=== PATIENT | male | born 1960 | race Caucasian/White ===

== ENCOUNTER 2017-02-22 15:41 | Inpatient (IN) | payer OTHER ==
[2017-02-22 16:05] VITALS: BMI 19.5
--- NOTE | 2017-02-22 17:52 | HP ---
COWS - Scale Resting Pulse: 0= [place] 80 or Below Sweatin= Chills/Flushing Restless Observation: 1= Difficult to Sit Still Pupil Size: 0= Normal to Room Light Bone or Joint Aches: 2= Severe Diffuse Aches Runny Nose/ Eye Tearin= Runny Nose/Eyes GI Upset > 30mins: 2= Nausea/Diarrhea Tremor Observation: 2= Slight Tremor Visible Yawning Observation: 1= 1-2x During Session Anxiety or Irritability: 2=Irritable/Anxious Goose Flesh Skin: 0=Smooth Skin COWS Score: 13 CIWA Score - CIWA Score Nausea/Vomitin-Mild Nausea/No Vomiting Muscle Tremors: 4-Moderate,w/Arms Extend Anxiety: 4-Mod. Anxious/Guarded Agitation: 4-Moderately Restless Paroxysmal Sweats: 1-Minimal Palms Moist Orientation: 1-Uncertain about Date Tacttile Disturbances: 0-None Auditory Disturbances: 0-None Visual Disturbances: 0-None Headache: 0-None Present CIWA-Ar Total Score: 15 Admission ROS S - HPI Chief Complaint: WITHDRAWAL SX Allergies/Adverse Reactions: Allergies Allergy/AdvReac Type Severity Reaction Status Date / Time No Known Allergies Allergy Verified 02/22/17 17:33 History of Present Illness: 56 YEARS OLD MALE WITH LONG HISTORY OF OPIOID ALCOHOL NICOTINE DEPENDENCE DENIES MEDICAL ISSUES HAS DEPRESSION IS ADMITTED TO DETOX Exam Limitations: No Limitations - Ebola screening Have you traveled outside of the country in the last 21 days: No Have you had contact with anyone from an Ebola affected area: No Have you been sick,other than usual withdrawal symptoms: No Do you have a fever: No - Review of Systems Constitutional: Chills, Loss of Appetite, Changes in sleep, Unintentional Wgt. Loss, Unexplained wgt Loss EENT: reports: Other (EYE GLASSES) Respiratory: reports: SOB with Exertion, Productive cough (GREENISH) Cardiac: reports: No Symptoms Reported GI: reports: Diarrhea, Nausea, Poor Appetite, Poor Fluid Intake, Indigestion, Abdominal cramping : reports: No Symptoms Reported Musculoskeletal: reports: Back Pain, Joint Pain, Muscle Pain, Neck Pain Integumentary: reports: Change in Color (RIGHT INNER ELBOW IV OPIOID) Neuro: reports: Tremors Endocrine: reports: No Symptoms Reported Hematology: reports: No Symptoms Reported Psychiatric: reports: Judgement Intact, Depressed Other Systems: Reviewed and Negative Patient History - Patient Medical History Hx Anemia: No Hx Asthma: No Hx Chronic Obstructive Pulmonary Disease (COPD): No Hx Cancer: No Hx Cardiac Disorders: No Hx Congestive Heart Failure: No Hx Hypertension: No Hx Hypercholesterolemia: No Hx Pacemaker: No HX Cerebrovascular Accident: No Hx Seizures: No Hx Dementia: No Hx Diabetes: No Hx Gastrointestinal Disorders: No Hx Liver Disease: No Hx Genitourinary Disorders: No Hx Sexually Transmitted Disorders: No Hx Renal Disease (ESRD): No Hx Thyroid Disease: No Hx Human Immunodeficiency Virus (HIV): No Hx Hepatitis C: Yes (TREATED) Hx Depression: Yes Hx Suicide Attempt: No Hx Bipolar Disorder: No Hx Schizophrenia: No - Patient Surgical History Past Surgical History: No - PPD History Previous Implant?: Yes Documented Results: Negative w/o proof Implanted On Prior [facility] Admission?: No PPD to be Administered?: Yes - Smoking Cessation Smoking history: Current every day smoker Have you smoked in the past 12 months: Yes Aproximately how many cigarettes per day: 10 Cigars Per Day: 0 Hx Chewing Tobacco Use: No Initiated information on smoking cessation: Yes 'Breaking Loose' booklet given: 02/22/17 - Substance & Tx. History Hx Alcohol Use: Yes Hx Substance Use: Yes Substance Use Type: Alcohol, Opiates Hx Substance Use Treatment: Yes - Substances Abused Heroin Route: Injection Frequency: Daily Amount used: 6-7 bags Age of first use: 20 Date of Last Use: 02/21/17 Alcohol Route: Oral Frequency: Daily Amount used: 1 22oz beer/ 1 pint gin Age of first use: 13 Date of Last Use: 02/21/17 Admission Physical Exam [facility] - Vital Signs Vital Signs: Vital Signs - 24 hr 02/22/17 16:03 Temperature 96.8 F L Pulse Rate 61 Respiratory 20 Rate Blood Pressure 128/81 - Physical General Appearance: Yes: Appropriately Dressed, Mild Distress, Thin, Tremorous, Irritable, Sweating, Anxious HEENTM: Yes: Hearing grossly Normal, Normal ENT Inspection, Normocephalic, Normal Voice Respiratory: Yes: Chest Non-Tender, Lungs Clear, Normal Breath Sounds, No Respiratory Distress, No Accessory Muscle Use Neck: Yes: Supple, Trachea in good position Breast: Yes: Breasts Symetrical Cardiology: Yes: Regular Rhythm, S1, S2, Bradycardia Abdominal: Yes: Non Tender, Soft Genitourinary: Yes: Within Normal Limits Back: Yes: Normal Inspection Musculoskeletal: Yes: full range of Motion, Gait Steady, Back pain, Muscle Pain Neurological: Yes: Alert, Motor Strength 5/5, Normal Response, Depressed Affect Integumentary: Yes: Warm, Track Wu Lymphatic: Yes: Within Normal Limits - Diagnostic (1) Alcohol dependence with uncomplicated withdrawal Current Visit: Yes Status: Acute (2) Opioid dependence with withdrawal Current Visit: Yes Status: Acute (3) Nicotine dependence Current Visit: Yes Status: Acute Qualifiers: Nicotine product type: cigarettes Substance use status: in withdrawal Qualified Code(s): F17.213 - Nicotine dependence, cigarettes, with withdrawal (4) Weight loss Current Visit: Yes Status: Acute (5) GERD (gastroesophageal reflux disease) Current Visit: Yes Status: Chronic Qualifiers: Esophagitis presence: without esophagitis Qualified Code(s): K21.9 - Gastro-esophageal reflux disease without esophagitis (6) Hepatitis C antibody test positive Current Visit: Yes Status: Resolved (7) Depression (emotion) Current Visit: Yes Status: Suspected Qualifiers: Depression Type: dysthymia Qualified Code(s): F34.1 - Dysthymic disorder Cleared for Admission [facility] - Detox or Rehab [facility] Level of Care: Medically Managed Detox Regimen/Protocol: Methadone/Librium S Breath Alcohol Content Breath Alcohol Content: 0 Urine Drug Screen - Results Drug Screen Negative: No Urine Drug Screen Results: OPI-Opiates
[2017-02-22] MEDS ORDERED: MAGNESIUM HYDROX 2400MG/30ML ORAL SUSPENSION 30 ML CUP PO PRN (17:57)
[2017-02-22] MEDS ORDERED: NICOTINE POLACRILEX 2 MG GUM BC PRN (17:57)
[2017-02-22] MEDS ORDERED: ACETAMINOPHEN 325 MG TABLET (FP) PO PRN (17:57)
[2017-02-22] MEDS ORDERED: MAG HYDROX/AL HYDROX/SIMETH 30 ML UNIT-DOSE CUP PO PRN (17:57)
[2017-02-22] MEDS ORDERED: LOPERAMIDE HCL 2 MG CAPSULE PO PRN (17:57)
[2017-02-22] MEDS ORDERED: MAGNESIUM CITRATE 300 ML BOTTLE PO PRN (17:57)
[2017-02-22] MEDS ORDERED: P-EPHED 60MG/TRIPROLIDI 2.5MG TABLET PO PRN (17:57)
[2017-02-22] MEDS ORDERED: METHADONE HCL 10 MG TABLET (FOR DETOX USE ONLY) PO ONE ×2 (18:30→23:00)
[2017-02-22] MEDS: chlordiazePOXIDE HCL 25 MG CAPSULE PO PRN (18:52)
[2017-02-22] MEDS: chlordiazePOXIDE HCL 25 MG CAPSULE PO SCH (22:33)
[2017-02-22] MEDS: THIAMINE HCL 100 MG TABLET (FP) PO SCH (22:33)
[2017-02-22] MEDS: RANITIDINE HCL 150 MG TABLET (FP) PO SCH (22:33)
[2017-02-22] MEDS: guaiFENesin/D-METHORPHAN HB 10 ML UNIT-DOSE CUPS PO PRN (22:35)
[2017-02-22 23:56] LABS: URINE APPEARANCE CLEAR; URINE BILIRUBIN NEGATIVE (NEGATIVE); URINE BLOOD NEGATIVE (NEGATIVE); URINE COLOR STRAW; URINE GLUCOSE (UA) NEGATIVE (NEGATIVE); URINE KETONE NEGATIVE (NEGATIVE); URINE LEUK ESTERASE NEGATIVE (NEGATIVE); URINE NITRITE NEGATIVE (NEGATIVE); URINE PROTEIN NEGATIVE (NEGATIVE); URINE UROBILINOGEN NEGATIVE E.U./dl (0.2-1.0)
[2017-02-23] MEDS: chlordiazePOXIDE HCL 25 MG CAPSULE PO SCH ×4 (04:36→22:45)
[2017-02-23] MEDS ORDERED: METHADONE HCL 10 MG TABLET (FOR DETOX USE ONLY) PO SCH (10:00)
[2017-02-23 10:09] LABS: MCH 30.6 pg (25.7-33.7); MCHC 32.9 g/dl (32.0-35.9); MEAN PLT VOLUME 10.2 fl (7.5-11.1); PLATELET COUNT 120 K/MM3 (134-434); RDW 12.9 % (11.9-15.9); WHITE BLOOD COUNT 4.2 K/mm3 (4.0-10.0)
--- NOTE | 2017-02-23 10:19 | CONSULT ---
[facility] Psychiatric Consult - Data Date of interview: 02/23/17 Admission source: [facility] Identifying data: This is 56 years old male with no psychiatric hospitalization history intoxicated with: Alvohol, Opioids and Nicotine Substance Abuse History: - Smoking Cessation. Smoking history: Current every day smoker. Have you smoked in the past 12 months: Yes. Aproximately how many cigarettes per day: 10. Cigars Per Day: 0. Hx Chewing Tobacco Use: No. Initiated information on smoking cessation: Yes. 'Breaking Loose' booklet given : 02/22/17. - Substance & Tx. History. Hx Alcohol Use: Yes. Hx Substance Use : Yes. Substance Use Type: Alcohol, Opiates. Hx Substance Use Treatment: Yes. - Substances Abused. Heroin. Route: Injection. Frequency: Daily. Amount used: 6-7 bags. Age of first use: 20. Date of Last Use: 02/21/17. Alcohol. Route: Oral. Frequency: Daily. Amount used: 1 22oz beer/ 1 pint gin. Age of first use: 13. Date of Last Use: 02/21/17 Medical History: Weight loss history, GERD Psychiatric History: Patient reports history og depression anhjd anxiety Physical/Sexual Abuse/Trauma History: Denies Additional Comment: Observation. Detox Unit Care Protocol Mental Status Exam - Mental Status Exam Alert and Oriented to: Person Cognitive Function: Fair Patient Appearance: Unkempt Mood: Sad Affect: Flat Patient Behavior: Sedated Speech Pattern: Appropriate Voice Loudness: Mildly Soft/Quiet Thought Process: Circumstantial Thought Disorder: Being Controlled Hallucinations: Denies Suicidal Ideation: Denies Homicidal Ideation: Denies Insight/Judgement: Fair Sleep: Difficulty falling asleep Appetite: Weight loss Muscle strength/Tone: Mild Hypotonicity Gait/Station: Shuffling Additional Comments: Observation. Detox Unit Care Protocol Psychiatric Findings - Problem List ([place] 1, 2,3) (1) Alcohol dependence with uncomplicated withdrawal Current Visit: Yes Status: Acute (2) Nicotine dependence Current Visit: Yes Status: Acute Qualifiers: Nicotine product type: cigarettes Substance use status: in withdrawal Qualified Code(s): F17.213 - Nicotine dependence, cigarettes, with withdrawal (3) Opioid dependence with withdrawal Current Visit: Yes Status: Acute (4) Drug-induced mood disorder Current Visit: Yes Status: Acute - Initial Treatment Plan Initial Treatment Plan: Observation. Detox Unit Care Protocol
[2017-02-23] MEDS: RANITIDINE HCL 150 MG TABLET (FP) PO SCH ×2 (10:28→23:00)
[2017-02-23] MEDS: PRENATAL VITAMINS W/ FOLIC ACID TABLET (FP) PO SCH (10:28)
[2017-02-23] MEDS: guaiFENesin/D-METHORPHAN HB 10 ML UNIT-DOSE CUPS PO PRN (10:29)
[2017-02-23] MEDS: NICOTINE 14 MG/24 HOURS TOPICAL PATCH TD SCH (10:31)
[2017-02-23 10:32] LABS: ALBUMIN 3.2 g/dl (3.4-5.0); CALCIUM 8.2 mg/dL (8.5-10.1); GLUCOSE,RANDOM 111 mg/dL (74-106); SGPT/ALT 84 U/L (12-78)
[2017-02-23 10:35] LABS: ALK PHOS 53 U/L (45-117); ANION GAP 8 (8-16); BILIRUBIN,TOTAL 0.3 mg/dL (0.2-1.0); CO2 28 mmol/L (21-32); COCKROFT - GAULT 74.96; SGOT/AST 69 U/L (15-37); TOT PROT 6.3 g/dl (6.4-8.2)
--- NOTE | 2017-02-23 11:41 | PN ---
[facility] CIWA - CIWA Score Nausea/Vomitin-No Nausea/No Vomiting Muscle Tremors: 4-Moderate,w/Arms Extend Anxiety: 4-Mod. Anxious/Guarded Agitation: 4-Moderately Restless Paroxysmal Sweats: 1-Minimal Palms Moist Orientation: 0-Oriented Tacttile Disturbances: 3-Moderate Itch/Numb/Burn Auditory Disturbances: 0-None Visual Disturbances: 0-None Headache: 0-None Present CIWA-Ar Total Score: 16 S COWS - Scale Resting Pulse: 0= [place] 80 or Below Sweatin= Chills/Flushing Restless Observation: 3= Extraneous Movement Pupil Size: 2= Moderately Dilated Bone or Joint Aches: 4=Acute Joint/Muscle Pain Runny Nose/ Eye Tearin= Nasal Congestion GI Upset > 30mins: 1= Stomach Cramp Tremor Observation of Outstretched Hands: 2= Slight Tremor Visible Yawning Observation: 2= >3x During Session Anxiety or Irritability: 2=Irritable/Anxious Goose Flesh Skin: 0=Smooth Skin COWS Score: 18 S Progress Note (SOAP) Subjective: ANXIETY,SWEATS,TREMORS,INTERMITTENT SLEEP. Objective: 02/23/17 11:49 Vital Signs Temperature 96.6 F L 02/23/17 09:32 Pulse Rate 68 02/23/17 09:32 Respiratory Rate 18 02/23/17 09:32 Blood Pressure 99/69 02/23/17 09:32 O2 Sat by Pulse Oximetry (%) Laboratory Last Values WBC 4.2 K/mm3 (4.0-10.0) 02/23/17 07:00 RBC 3.88 M/mm3 (4.00-5.60) L 02/23/17 07:00 Hgb 11.9 GM/dL (11.7-16.9) 02/23/17 07:00 Hct 36.1 % (35.4-49) 02/23/17 07:00 MCV 93.0 fl (80-96) 02/23/17 07:00 MCHC 32.9 g/dl (32.0-35.9) 02/23/17 07:00 RDW 12.9 % (11.9-15.9) 02/23/17 07:00 Plt Count 120 K/MM3 (134-434) L 02/23/17 07:00 MPV 10.2 fl (7.5-11.1) 02/23/17 07:00 Sodium 141 mmol/L (136-145) 02/23/17 07:00 Potassium 3.5 mmol/L (3.5-5.1) 02/23/17 07:00 Chloride 105 mmol/L (98-107) 02/23/17 07:00 Carbon Dioxide 28 mmol/L (21-32) 02/23/17 07:00 Anion Gap 8 (8-16) 02/23/17 07:00 BUN 27 mg/dL (7-18) H 02/23/17 07:00 Creatinine 1.0 mg/dL (0.7-1.3) 02/23/17 07:00 Creat Clearance w eGFR > 60 (>60) 02/23/17 07:00 Random Glucose 111 mg/dL (74-106) H 02/23/17 07:00 Calcium 8.2 mg/dL (8.5-10.1) L 02/23/17 07:00 Total Bilirubin 0.3 mg/dL (0.2-1.0) 02/23/17 07:00 AST 69 U/L (15-37) H 02/23/17 07:00 ALT 84 U/L (12-78) H 02/23/17 07:00 Alkaline Phosphatase 53 U/L (45-117) 02/23/17 07:00 Total Protein 6.3 g/dl (6.4-8.2) L 02/23/17 07:00 Albumin 3.2 g/dl (3.4-5.0) L 02/23/17 07:00 Urine Color Straw 02/22/17 23:40 Urine Appearance Clear 02/22/17 23:40 Urine pH 7.0 (5.0-8.0) 02/22/17 23:40 Urine Protein Negative (NEGATIVE) 02/22/17 23:40 Urine Glucose (UA) Negative (NEGATIVE) 02/22/17 23:40 Urine Ketones Negative (NEGATIVE) 02/22/17 23:40 Urine Blood Negative (NEGATIVE) 02/22/17 23:40 Urine Nitrite Negative (NEGATIVE) 02/22/17 23:40 Urine Bilirubin Negative (NEGATIVE) 02/22/17 23:40 Urine Urobilinogen Negative E.U./dl (0.2-1.0) 02/22/17 23:40 Ur Leukocyte Esterase Negative (NEGATIVE) 02/22/17 23:40 Assessment: 02/23/17 11:49 WITHDRAWAL SX Plan: CONTINUE DETOX
[2017-02-23] MEDS: chlordiazePOXIDE HCL 25 MG CAPSULE PO PRN (15:33)
[2017-02-23] MEDS: MENTHOL/PHENOL 1 EACH UD MM PRN (15:35)
--- NOTE | 2017-02-23 17:35 | EKG ---
Test Reason : Blood Pressure : / mmHG Vent. Rate : 056 BPM Atrial Rate : 056 BPM P-R Int : 134 ms QRS Dur : 072 ms QT Int : 422 ms P-R-T Axes : 077 042 064 degrees QTc Int : 407 ms SINUS BRADYCARDIA OTHERWISE NORMAL ECG NO PREVIOUS ECGS AVAILABLE Confirmed by OSKAR BLAKELY MD ([id number]) on 02/23/2017 5:35:25 PM Referred By: Confirmed By:OSKAR BLAKELY MD
[2017-02-23] MEDS: THIAMINE HCL 100 MG TABLET (FP) PO SCH (22:45)
[2017-02-23] MEDS: diphenhydrAMINE HCL 50 MG CAPSULE PO PRN (22:45)
[2017-02-24] MEDS: chlordiazePOXIDE HCL 25 MG CAPSULE PO SCH ×3 (04:31→17:21)
[2017-02-24] MEDS: RANITIDINE HCL 150 MG TABLET (FP) PO SCH ×2 (10:39→22:35)
[2017-02-24] MEDS: PRENATAL VITAMINS W/ FOLIC ACID TABLET (FP) PO SCH (10:39)
[2017-02-24] MEDS: METHADONE HCL 5 MG TABLET (FOR DETOX USE ONLY) PO SCH (10:40)
[2017-02-24] MEDS: NICOTINE 14 MG/24 HOURS TOPICAL PATCH TD SCH (10:40)
--- NOTE | 2017-02-24 11:10 | PN ---
[facility] CIWA - CIWA Score Nausea/Vomitin-No Nausea/No Vomiting Muscle Tremors: 3 Anxiety: 2 Agitation: 2 Paroxysmal Sweats: 3 Orientation: 0-Oriented Tacttile Disturbances: 0-None Auditory Disturbances: 0-None Visual Disturbances: 0-None Headache: 0-None Present CIWA-Ar Total Score: 10 BHS COWS - Scale Resting Pulse: 0= [place] 80 or Below Sweatin=Flushed/Facial Moisture Restless Observation: 1= Difficult to Sit Still Pupil Size: 0= Normal to Room Light Bone or Joint Aches: 1= Mild Discomfort Runny Nose/ Eye Tearin= Nasal Congestion GI Upset > 30mins: 1= Stomach Cramp Tremor Observation of Outstretched Hands: 2= Slight Tremor Visible Yawning Observation: 1= 1-2x During Session Anxiety or Irritability: 2=Irritable/Anxious Goose Flesh Skin: 0=Smooth Skin COWS Score: 11 S Progress Note (SOAP) Subjective: Sweating,tremors,anxiety,muscle aches,interrupted sleep,restless. Objective: 02/24/17 11:09 Vital Signs - 8 hr 02/24/17 02/24/17 02/24/17 03:30 06:46 10:44 Temperature 97 F L 97.0 F L Pulse Rate 56 L 67 Respiratory 18 18 18 Rate Blood Pressure 100/67 91/62 Laboratory Tests 02/22/17 02/23/17 02/23/17 23:40 07:00 07:00 WBC 4.2 RBC 3.88 L Hgb 11.9 Hct 36.1 MCV 93.0 MCHC 32.9 RDW 12.9 Plt Count 120 L MPV 10.2 Sodium 141 Potassium 3.5 Chloride 105 Carbon Dioxide 28 Anion Gap 8 BUN 27 H Creatinine 1.0 Creat Clearance w eGFR > 60 Random Glucose 111 H Calcium 8.2 L Total Bilirubin 0.3 AST 69 H ALT 84 H Alkaline Phosphatase 53 Total Protein 6.3 L Albumin 3.2 L Urine Color Straw Urine Appearance Clear Urine pH 7.0 Ur Specific [place] 1.010 Urine Protein Negative Urine Glucose (UA) Negative Urine Ketones Negative Urine Blood Negative Urine Nitrite Negative Urine Bilirubin Negative Urine Urobilinogen Negative Ur Leukocyte Esterase Negative RPR Titer 02/23/17 07:00 WBC RBC Hgb Hct MCV MCHC RDW Plt Count MPV Sodium Potassium Chloride Carbon Dioxide Anion Gap BUN Creatinine Creat Clearance w eGFR Random Glucose Calcium Total Bilirubin AST ALT Alkaline Phosphatase Total Protein Albumin Urine Color Urine Appearance Urine pH Ur Specific [place] Urine Protein Urine Glucose (UA) Urine Ketones Urine Blood Urine Nitrite Urine Bilirubin Urine Urobilinogen Ur Leukocyte Esterase RPR Titer Nonreactive labs noted Assessment: 02/24/17 11:09 Withdrawal sx. Plan: Continue detox
[2017-02-24] MEDS: THIAMINE HCL 100 MG TABLET (FP) PO SCH (22:35)
[2017-02-24] MEDS: chlordiazePOXIDE 5 MG CAPSULE PO SCH (22:35)
[2017-02-24] MEDS: guaiFENesin/D-METHORPHAN HB 10 ML UNIT-DOSE CUPS PO PRN (22:37)
[2017-02-25] MEDS: chlordiazePOXIDE 5 MG CAPSULE PO SCH ×3 (06:13→17:22)
[2017-02-25] MEDS: PRENATAL VITAMINS W/ FOLIC ACID TABLET (FP) PO SCH (10:35)
[2017-02-25] MEDS: NICOTINE 14 MG/24 HOURS TOPICAL PATCH TD SCH (10:35)
[2017-02-25] MEDS: RANITIDINE HCL 150 MG TABLET (FP) PO SCH ×2 (10:35→22:41)
[2017-02-25] MEDS: METHADONE HCL 5 MG TABLET (FOR DETOX USE ONLY) PO SCH (10:35)
[2017-02-25] MEDS: guaiFENesin/D-METHORPHAN HB 10 ML UNIT-DOSE CUPS PO PRN ×2 (10:37→17:24)
--- NOTE | 2017-02-25 17:53 | PN ---
[facility] Progress Note (SOAP) Subjective: Sweating, Hot / Cold sensations, Anxious, Interrupted Sleep, Back Ache, Body Aches. Objective: PT. A & O X 3, OBSERVED AMBULATING ON UNIT. 02/25/17 17:51 Vital Signs Temperature 96.9 F L 02/25/17 15:47 Pulse Rate 73 02/25/17 15:47 Respiratory Rate 20 02/25/17 15:47 Blood Pressure 102/66 02/25/17 15:47 O2 Sat by Pulse Oximetry (%) Laboratory Last Values WBC 4.2 K/mm3 (4.0-10.0) 02/23/17 07:00 RBC 3.88 M/mm3 (4.00-5.60) L 02/23/17 07:00 Hgb 11.9 GM/dL (11.7-16.9) 02/23/17 07:00 Hct 36.1 % (35.4-49) 02/23/17 07:00 MCV 93.0 fl (80-96) 02/23/17 07:00 MCHC 32.9 g/dl (32.0-35.9) 02/23/17 07:00 RDW 12.9 % (11.9-15.9) 02/23/17 07:00 Plt Count 120 K/MM3 (134-434) L 02/23/17 07:00 MPV 10.2 fl (7.5-11.1) 02/23/17 07:00 Sodium 141 mmol/L (136-145) 02/23/17 07:00 Potassium 3.5 mmol/L (3.5-5.1) 02/23/17 07:00 Chloride 105 mmol/L (98-107) 02/23/17 07:00 Carbon Dioxide 28 mmol/L (21-32) 02/23/17 07:00 Anion Gap 8 (8-16) 02/23/17 07:00 BUN 27 mg/dL (7-18) H 02/23/17 07:00 Creatinine 1.0 mg/dL (0.7-1.3) 02/23/17 07:00 Creat Clearance w eGFR > 60 (>60) 02/23/17 07:00 Random Glucose 111 mg/dL (74-106) H 02/23/17 07:00 Calcium 8.2 mg/dL (8.5-10.1) L 02/23/17 07:00 Total Bilirubin 0.3 mg/dL (0.2-1.0) 02/23/17 07:00 AST 69 U/L (15-37) H 02/23/17 07:00 ALT 84 U/L (12-78) H 02/23/17 07:00 Alkaline Phosphatase 53 U/L (45-117) 02/23/17 07:00 Total Protein 6.3 g/dl (6.4-8.2) L 02/23/17 07:00 Albumin 3.2 g/dl (3.4-5.0) L 02/23/17 07:00 Urine Color Straw 02/22/17 23:40 Urine Appearance Clear 02/22/17 23:40 Urine pH 7.0 (5.0-8.0) 02/22/17 23:40 Ur Specific [place] 1.010 (1.005-1.025) 02/22/17 23:40 Urine Protein Negative (NEGATIVE) 02/22/17 23:40 Urine Glucose (UA) Negative (NEGATIVE) 02/22/17 23:40 Urine Ketones Negative (NEGATIVE) 02/22/17 23:40 Urine Blood Negative (NEGATIVE) 02/22/17 23:40 Urine Nitrite Negative (NEGATIVE) 02/22/17 23:40 Urine Bilirubin Negative (NEGATIVE) 02/22/17 23:40 Urine Urobilinogen Negative E.U./dl (0.2-1.0) 02/22/17 23:40 Ur Leukocyte Esterase Negative (NEGATIVE) 02/22/17 23:40 RPR Titer Nonreactive (NONREACTIVE) 02/23/17 07:00 LABS NOTED. Assessment: 02/25/17 17:53 WITHDRAWAL SYMPTOMS. Plan: CONTINUE DETOX. ADVISED PATIENT TO FOLLOW-UP WITH NUTRITION SERVICES ASSOCIATE / REHAB MEDICAL PROVIDER AFTER DISCHARGE FROM DETOX FOR GENERAL MEDICAL ASSESSMENT AND FOR ABNORMAL ADMISSION LAB VALUES.
[2017-02-25] MEDS: chlordiazePOXIDE HCL 10 MG CAPSULE PO SCH (22:41)
[2017-02-25] MEDS: THIAMINE HCL 100 MG TABLET (FP) PO SCH (22:41)
[2017-02-25] MEDS: diphenhydrAMINE HCL 50 MG CAPSULE PO PRN (22:42)
[2017-02-26] MEDS: chlordiazePOXIDE HCL 10 MG CAPSULE PO SCH ×3 (05:53→17:40)
[2017-02-26] MEDS ORDERED: METHADONE HCL 10 MG TABLET (FOR DETOX USE ONLY) PO SCH (10:00)
[2017-02-26] MEDS: PRENATAL VITAMINS W/ FOLIC ACID TABLET (FP) PO SCH (10:19)
[2017-02-26] MEDS: RANITIDINE HCL 150 MG TABLET (FP) PO SCH ×2 (10:19→21:51)
[2017-02-26] MEDS: NICOTINE 14 MG/24 HOURS TOPICAL PATCH TD SCH (10:20)
[2017-02-26] MEDS: guaiFENesin/D-METHORPHAN HB 10 ML UNIT-DOSE CUPS PO PRN (10:20)
--- NOTE | 2017-02-26 15:51 | PN ---
BHS Progress Note (SOAP) Subjective: Chills, tremor, sweating, anxious, restless Objective: 02/26/17 15:47 Last Vital Signs Temp Pulse Resp BP Pulse Ox 96.1 F L 69 18 99/66 02/26/17 13:55 02/26/17 13:55 02/26/17 13:55 02/26/17 13:55 Laboratory Tests 02/22/17 02/23/17 02/23/17 23:40 07:00 07:00 WBC 4.2 RBC 3.88 L Hgb 11.9 Hct 36.1 MCV 93.0 MCHC 32.9 RDW 12.9 Plt Count 120 L MPV 10.2 Sodium 141 Potassium 3.5 Chloride 105 Carbon Dioxide 28 Anion Gap 8 BUN 27 H Creatinine 1.0 Creat Clearance w eGFR > 60 Random Glucose 111 H Calcium 8.2 L Total Bilirubin 0.3 AST 69 H ALT 84 H Alkaline Phosphatase 53 Total Protein 6.3 L Albumin 3.2 L Urine Color Straw Urine Appearance Clear Urine pH 7.0 Ur Specific [place] 1.010 Urine Protein Negative Urine Glucose (UA) Negative Urine Ketones Negative Urine Blood Negative Urine Nitrite Negative Urine Bilirubin Negative Urine Urobilinogen Negative Ur Leukocyte Esterase Negative RPR Titer 02/23/17 07:00 WBC RBC Hgb Hct MCV MCHC RDW Plt Count MPV Sodium Potassium Chloride Carbon Dioxide Anion Gap BUN Creatinine Creat Clearance w eGFR Random Glucose Calcium Total Bilirubin AST ALT Alkaline Phosphatase Total Protein Albumin Urine Color Urine Appearance Urine pH Ur Specific [place] Urine Protein Urine Glucose (UA) Urine Ketones Urine Blood Urine Nitrite Urine Bilirubin Urine Urobilinogen Ur Leukocyte Esterase RPR Titer Nonreactive Labs noted: platelets 120, BUN 27 Assessment: 02/26/17 15:49 Withdrawal symptoms Noted with mild thrombocytopenia and azotemia Plan: Continue detox Thrombocytopenia: follow up with PCP for monitoring and report and bleeding/ bruising Azotemia: encouraged to drink lots of water
[2017-02-26] MEDS: THIAMINE HCL 100 MG TABLET (FP) PO SCH (21:51)
[2017-02-27] MEDS ORDERED: METHADONE HCL 5 MG TABLET (FOR DETOX USE ONLY) PO SCH (06:00)
[2017-02-27] MEDS: guaiFENesin/D-METHORPHAN HB 10 ML UNIT-DOSE CUPS PO PRN (06:48)
[2017-02-27] MEDS: MENTHOL/PHENOL 1 EACH UD MM PRN (06:48)
[2017-02-27 09:39] VITALS: BP 112/68; PULSE 88; TEMP 97.2
[2017-02-27] MEDS: RANITIDINE HCL 150 MG TABLET (FP) PO SCH (10:29)
[2017-02-27] MEDS: PRENATAL VITAMINS W/ FOLIC ACID TABLET (FP) PO SCH (10:29)
[2017-02-27] MEDS: NICOTINE 14 MG/24 HOURS TOPICAL PATCH TD SCH (10:29)
--- NOTE | 2017-02-27 15:21 | DS ---
[facility] Detox Discharge Summary Admission Date: 02/22/17 Discharge Date: 02/27/17 - History Present History: Alcohol Dependence, Opioid Dependence Pertinent Past History: GERD Hep C - Physical Exam Results Vital Signs: Vital Signs Temperature 97.2 F L 02/27/17 09:38 Pulse Rate 88 02/27/17 09:38 Respiratory Rate 18 02/27/17 09:38 Blood Pressure 112/68 02/27/17 09:38 O2 Sat by Pulse Oximetry (%) Pertinent Admission Physical Exam Findings: Withdrawal sx. Laboratory Last Values WBC 4.2 K/mm3 (4.0-10.0) 02/23/17 07:00 RBC 3.88 M/mm3 (4.00-5.60) L 02/23/17 07:00 Hgb 11.9 GM/dL (11.7-16.9) 02/23/17 07:00 Hct 36.1 % (35.4-49) 02/23/17 07:00 MCV 93.0 fl (80-96) 02/23/17 07:00 MCHC 32.9 g/dl (32.0-35.9) 02/23/17 07:00 RDW 12.9 % (11.9-15.9) 02/23/17 07:00 Plt Count 120 K/MM3 (134-434) L 02/23/17 07:00 MPV 10.2 fl (7.5-11.1) 02/23/17 07:00 Sodium 141 mmol/L (136-145) 02/23/17 07:00 Potassium 3.5 mmol/L (3.5-5.1) 02/23/17 07:00 Chloride 105 mmol/L (98-107) 02/23/17 07:00 Carbon Dioxide 28 mmol/L (21-32) 02/23/17 07:00 Anion Gap 8 (8-16) 02/23/17 07:00 BUN 27 mg/dL (7-18) H 02/23/17 07:00 Creatinine 1.0 mg/dL (0.7-1.3) 02/23/17 07:00 Creat Clearance w eGFR > 60 (>60) 02/23/17 07:00 Random Glucose 111 mg/dL (74-106) H 02/23/17 07:00 Calcium 8.2 mg/dL (8.5-10.1) L 02/23/17 07:00 Total Bilirubin 0.3 mg/dL (0.2-1.0) 02/23/17 07:00 AST 69 U/L (15-37) H 02/23/17 07:00 ALT 84 U/L (12-78) H 02/23/17 07:00 Alkaline Phosphatase 53 U/L (45-117) 02/23/17 07:00 Total Protein 6.3 g/dl (6.4-8.2) L 02/23/17 07:00 Albumin 3.2 g/dl (3.4-5.0) L 02/23/17 07:00 Urine Color Straw 02/22/17 23:40 Urine Appearance Clear 02/22/17 23:40 Urine pH 7.0 (5.0-8.0) 02/22/17 23:40 Ur Specific [place] 1.010 (1.005-1.025) 02/22/17 23:40 Urine Protein Negative (NEGATIVE) 02/22/17 23:40 Urine Glucose (UA) Negative (NEGATIVE) 02/22/17 23:40 Urine Ketones Negative (NEGATIVE) 02/22/17 23:40 Urine Blood Negative (NEGATIVE) 02/22/17 23:40 Urine Nitrite Negative (NEGATIVE) 02/22/17 23:40 Urine Bilirubin Negative (NEGATIVE) 02/22/17 23:40 Urine Urobilinogen Negative E.U./dl (0.2-1.0) 02/22/17 23:40 Ur Leukocyte Esterase Negative (NEGATIVE) 02/22/17 23:40 RPR Titer Nonreactive (NONREACTIVE) 02/23/17 07:00 labs noted - Treatment Hospital Course: Detox Protocol Followed, Detoxed Safely, Responded well, Discharged Condition Good, Rehab Referral Accepted Patient has Accepted a Rehab Referral to: [facility] - Medication Discharge Medications: Ambulatory Orders NK [No Known Home Medication] 02/22/17 - Diagnosis (1) Alcohol dependence with uncomplicated withdrawal Current Visit: Yes Status: Acute (2) Drug-induced mood disorder Current Visit: Yes Status: Acute (3) Nicotine dependence Current Visit: Yes Status: Acute Qualifiers: Nicotine product type: cigarettes Substance use status: in withdrawal Qualified Code(s): F17.213 - Nicotine dependence, cigarettes, with withdrawal (4) Opioid dependence with withdrawal Current Visit: Yes Status: Acute (5) GERD (gastroesophageal reflux disease) Current Visit: Yes Status: Chronic Qualifiers: Esophagitis presence: without esophagitis Qualified Code(s): K21.9 - Gastro-esophageal reflux disease without esophagitis (6) Hepatitis C antibody test positive Current Visit: Yes Status: Resolved - AMA Did Patient Leave Against Medical Advice: No
== END 2017-02-27 15:34 | disposition other institution (70) | DRG 773 ==
LOC: YASAS 15:41 → Y3N 17:59
PROVIDERS: ADMIT Internal Medicine; ATTEND Internal Medicine
PROC: HZ2ZZZZ Detoxification Services for Substance Abuse Treatment (ICD-10-PCS; principal; 2017-02-27)
DX: F11.23 Opioid dependence with withdrawal (principal); F10.230 Alcohol dependence with withdrawal, uncomplicated; F17.213 Nicotine dependence, cigarettes, with withdrawal; F19.24 Other psychoactive substance dependence with psychoactive substance-induced mood disorder; F34.1 Dysthymic disorder; B18.2 Chronic viral hepatitis C; K21.9 Gastro-esophageal reflux disease without esophagitis
CPT/HCPCS: 36415; 80053; 81003; 85027; 86593; 93005; 93010

== ENCOUNTER 2017-02-27 16:14 | Inpatient (IN) | payer OTHER ==
[2017-02-27] MEDS ORDERED: ACETAMINOPHEN 325 MG TABLET (FP) PO PRN (20:14)
[2017-02-27] MEDS ORDERED: LOPERAMIDE HCL 2 MG CAPSULE PO PRN (20:14)
[2017-02-27] MEDS ORDERED: P-EPHED 60MG/TRIPROLIDI 2.5MG TABLET PO PRN (20:14)
[2017-02-27] MEDS ORDERED: MENTHOL/PHENOL 1 EACH UD MM PRN (20:14)
[2017-02-27] MEDS ORDERED: MAGNESIUM HYDROX 2400MG/30ML ORAL SUSPENSION 30 ML CUP PO PRN (20:14)
[2017-02-27] MEDS ORDERED: guaiFENesin/D-METHORPHAN HB 10 ML UNIT-DOSE CUPS PO PRN (20:14)
[2017-02-27] MEDS ORDERED: IBUPROFEN 400 MG TABLET (FP) PO PRN (20:14)
[2017-02-27] MEDS ORDERED: NICOTINE POLACRILEX 2 MG GUM BUC PRN (20:14)
[2017-02-27] MEDS ORDERED: MAGNESIUM CITRATE 300 ML BOTTLE PO PRN (20:14)
[2017-02-27] MEDS ORDERED: MAG HYDROX/AL HYDROX/SIMETH 30 ML UNIT-DOSE CUP PO PRN (20:14)
--- NOTE | 2017-02-27 20:14 | HP ---
[facility] Rehab Assess/Revision - Admission History Admitted to Rehab from: [facility] Date of Admission to Rehab: 02/27/17 - Vital signs Vital Signs: Vital Signs Period Temp Pulse Resp BP Sys/Dickinson Pulse Ox Last 24 Hr 98.3 F 77 18 102/52 - Findings Detox History & Physical reviewed: Yes Concur with findings: Yes Comments/Additional Findings: TRANFERRED FROM DETOX TO REHAB ADMISSION PER PROTOCOL
[2017-02-27] MEDS: THIAMINE HCL 100 MG TABLET (FP) PO SCH (21:56)
[2017-02-27] MEDS: NICOTINE 14 MG/24 HOURS TOPICAL PATCH TD SCH (21:56)
[2017-02-27] MEDS: diphenhydrAMINE HCL 50 MG CAPSULE PO PRN (23:30)
[2017-02-28] MEDS: PRENATAL VITAMINS W/ FOLIC ACID TABLET (FP) PO SCH (10:36)
[2017-02-28] MEDS: NICOTINE 14 MG/24 HOURS TOPICAL PATCH TD SCH (10:36)
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
[2017-02-28] MEDS: hydrOXYzine PAMOATE 50 MG CAPSULE (FP) PO PRN (13:59)
[2017-02-28] MEDS: risperiDONE 0.25 MG TABLET (FP) PO SCH (22:07)
[2017-02-28] MEDS: THIAMINE HCL 100 MG TABLET (FP) PO SCH (22:07)
[2017-03-01] MEDS: NICOTINE 14 MG/24 HOURS TOPICAL PATCH TD SCH (10:30)
[2017-03-01] MEDS: risperiDONE 0.25 MG TABLET (FP) PO SCH ×2 (10:30→22:02)
[2017-03-01] MEDS: PRENATAL VITAMINS W/ FOLIC ACID TABLET (FP) PO SCH (10:30)
[2017-03-01] MEDS: SERTRALINE HCL 25 MG TABLET (FP) PO SCH (10:30)
[2017-03-01] MEDS: THIAMINE HCL 100 MG TABLET (FP) PO SCH (22:02)
[2017-03-02] MEDS: NICOTINE 14 MG/24 HOURS TOPICAL PATCH TD SCH (10:59)
[2017-03-02] MEDS: SERTRALINE HCL 25 MG TABLET (FP) PO SCH (10:59)
[2017-03-02] MEDS: PRENATAL VITAMINS W/ FOLIC ACID TABLET (FP) PO SCH (10:59)
[2017-03-02] MEDS: risperiDONE 0.25 MG TABLET (FP) PO SCH ×2 (10:59→21:49)
--- NOTE | 2017-03-02 12:51 | EKG ---
Test Reason : Blood Pressure : / mmHG Vent. Rate : 062 BPM Atrial Rate : 062 BPM P-R Int : 148 ms QRS Dur : 076 ms QT Int : 408 ms P-R-T Axes : 078 031 048 degrees QTc Int : 414 ms POOR DATA QUALITY, INTERPRETATION MAY BE ADVERSELY AFFECTED NORMAL SINUS RHYTHM NORMAL ECG WHEN COMPARED WITH ECG OF 22-FEB-2017 17:56, NO SIGNIFICANT CHANGE WAS FOUND Confirmed by ZORA CALDWELL, OSKAR ([id number]) on 03/02/2017 12:51:00 PM Referred By: Confirmed By:OSKAR BLAKELY MD
[2017-03-02] MEDS: THIAMINE HCL 100 MG TABLET (FP) PO SCH (21:49)
[2017-03-02] MEDS: diphenhydrAMINE HCL 50 MG CAPSULE PO PRN (23:18)
[2017-03-03] MEDS: SERTRALINE HCL 25 MG TABLET (FP) PO SCH (10:41)
[2017-03-03] MEDS: PRENATAL VITAMINS W/ FOLIC ACID TABLET (FP) PO SCH (10:41)
[2017-03-03] MEDS: risperiDONE 0.25 MG TABLET (FP) PO SCH ×2 (10:41→21:58)
[2017-03-03] MEDS: NICOTINE 14 MG/24 HOURS TOPICAL PATCH TD SCH (10:42)
--- NOTE | 2017-03-03 15:00 | PN ---
[facility] Progress Note Note: patient reports he is unable to sleep, was on Ambien , will add Belsomra 10 mg po hs, continue top monitor progress.
[2017-03-03] MEDS: THIAMINE HCL 100 MG TABLET (FP) PO SCH (21:56)
[2017-03-03] MEDS: diphenhydrAMINE HCL 50 MG CAPSULE PO PRN (21:56)
[2017-03-03] MEDS: SUVOREXANT 10 MG TABLET PO PRN (21:58)
[2017-03-04] MEDS: risperiDONE 0.25 MG TABLET (FP) PO SCH ×2 (10:57→21:46)
[2017-03-04] MEDS: SERTRALINE HCL 25 MG TABLET (FP) PO SCH (10:57)
[2017-03-04] MEDS: NICOTINE 14 MG/24 HOURS TOPICAL PATCH TD SCH (10:57)
[2017-03-04] MEDS: PRENATAL VITAMINS W/ FOLIC ACID TABLET (FP) PO SCH (10:57)
[2017-03-04] MEDS: THIAMINE HCL 100 MG TABLET (FP) PO SCH (21:46)
[2017-03-04] MEDS: diphenhydrAMINE HCL 50 MG CAPSULE PO PRN (21:47)
[2017-03-05] MEDS: SERTRALINE HCL 25 MG TABLET (FP) PO SCH (10:45)
[2017-03-05] MEDS: risperiDONE 0.25 MG TABLET (FP) PO SCH ×2 (10:45→21:47)
[2017-03-05] MEDS: PRENATAL VITAMINS W/ FOLIC ACID TABLET (FP) PO SCH (10:45)
[2017-03-05] MEDS: NICOTINE 14 MG/24 HOURS TOPICAL PATCH TD SCH (10:45)
[2017-03-05] MEDS: hydrOXYzine PAMOATE 50 MG CAPSULE (FP) PO PRN (17:15)
[2017-03-05] MEDS: SUVOREXANT 10 MG TABLET PO PRN (21:46)
[2017-03-05] MEDS: THIAMINE HCL 100 MG TABLET (FP) PO SCH (21:47)
[2017-03-06] MEDS ORDERED: TRIMETHOBENZAMIDE HCL 200MG/2ML INJ IM PRN (06:08)
[2017-03-06] MEDS: NICOTINE 14 MG/24 HOURS TOPICAL PATCH TD SCH (10:55)
[2017-03-06] MEDS: SERTRALINE HCL 25 MG TABLET (FP) PO SCH (10:57)
[2017-03-06] MEDS: PRENATAL VITAMINS W/ FOLIC ACID TABLET (FP) PO SCH (10:57)
[2017-03-06] MEDS: hydrOXYzine PAMOATE 50 MG CAPSULE (FP) PO PRN (10:57)
[2017-03-06] MEDS: risperiDONE 0.25 MG TABLET (FP) PO SCH ×2 (10:57→22:12)
[2017-03-06] MEDS ORDERED: cloNIDine HCL 0.1 MG TABLET PO ONE (13:51)
[2017-03-06] MEDS: CYCLOBENZAPRINE HCL 10 MG TABLET (FP) PO PRN ×2 (14:45→22:13)
--- NOTE | 2017-03-06 15:00 | PN ---
[facility] Progress Note Note: patient reports no side-effects from belsomra, will renew and continue to monitor progress.
[2017-03-06] MEDS: cloNIDine HCL 0.1 MG TABLET PO SCH (22:12)
[2017-03-06] MEDS: THIAMINE HCL 100 MG TABLET (FP) PO SCH (22:12)
[2017-03-07] MEDS: CYCLOBENZAPRINE HCL 10 MG TABLET (FP) PO PRN ×2 (10:38→21:43)
[2017-03-07] MEDS: PRENATAL VITAMINS W/ FOLIC ACID TABLET (FP) PO SCH (10:39)
[2017-03-07] MEDS: SERTRALINE HCL 25 MG TABLET (FP) PO SCH (10:39)
[2017-03-07] MEDS: risperiDONE 0.25 MG TABLET (FP) PO SCH ×2 (10:39→21:42)
[2017-03-07] MEDS: cloNIDine HCL 0.1 MG TABLET PO SCH ×2 (10:39→21:42)
[2017-03-07] MEDS: NICOTINE 14 MG/24 HOURS TOPICAL PATCH TD SCH (10:39)
[2017-03-07] MEDS: THIAMINE HCL 100 MG TABLET (FP) PO SCH (21:42)
[2017-03-08] MEDS: cloNIDine HCL 0.1 MG TABLET PO SCH ×2 (10:41→21:48)
[2017-03-08] MEDS: PRENATAL VITAMINS W/ FOLIC ACID TABLET (FP) PO SCH (10:41)
[2017-03-08] MEDS: NICOTINE 14 MG/24 HOURS TOPICAL PATCH TD SCH (10:41)
[2017-03-08] MEDS: CYCLOBENZAPRINE HCL 10 MG TABLET (FP) PO PRN ×2 (10:41→21:48)
[2017-03-08] MEDS: SERTRALINE HCL 25 MG TABLET (FP) PO SCH (10:42)
[2017-03-08] MEDS: risperiDONE 0.25 MG TABLET (FP) PO SCH ×2 (10:42→21:47)
[2017-03-08] MEDS: THIAMINE HCL 100 MG TABLET (FP) PO SCH (21:47)
[2017-03-08] MEDS: diphenhydrAMINE HCL 50 MG CAPSULE PO PRN (23:00)
[2017-03-09 10:00] LABS: CALCIUM 9.1 mg/dL (8.5-10.1); COCKROFT - GAULT 70.58; CREATININE 1.1 mg/dL (0.7-1.3)
[2017-03-09] MEDS: risperiDONE 0.25 MG TABLET (FP) PO SCH ×2 (10:20→21:56)
[2017-03-09] MEDS: PRENATAL VITAMINS W/ FOLIC ACID TABLET (FP) PO SCH (10:20)
[2017-03-09] MEDS: SERTRALINE HCL 25 MG TABLET (FP) PO SCH (10:20)
[2017-03-09] MEDS: cloNIDine HCL 0.1 MG TABLET PO SCH ×2 (10:20→21:56)
[2017-03-09] MEDS: NICOTINE 14 MG/24 HOURS TOPICAL PATCH TD SCH (10:20)
[2017-03-09 10:27] LABS: BASOPHIL 0.7 % (0-2.0); MCHC 32.4 g/dl (32.0-35.9); MEAN CELL VOLUME 95.6 fl (80-96); MEAN PLT VOLUME 10.8 fl (7.5-11.1); NEUTROPHILS 41.5 % (42.8-82.8); PLATELET COUNT 163 K/MM3 (134-434); RDW 14.2 % (11.9-15.9); WHITE BLOOD COUNT 4.9 K/mm3 (4.0-10.0)
[2017-03-09 11:41] LABS: HIV 1 & 2 AB NEGATIVE; HIV 1 AGp24 NEGATIVE
[2017-03-09] MEDS: THIAMINE HCL 100 MG TABLET (FP) PO SCH (21:56)
[2017-03-09] MEDS: diphenhydrAMINE HCL 50 MG CAPSULE PO PRN (21:56)
[2017-03-10] MEDS: PRENATAL VITAMINS W/ FOLIC ACID TABLET (FP) PO SCH (10:39)
[2017-03-10] MEDS: NICOTINE 14 MG/24 HOURS TOPICAL PATCH TD SCH (10:40)
[2017-03-10] MEDS: SERTRALINE HCL 25 MG TABLET (FP) PO SCH (10:40)
[2017-03-10] MEDS: risperiDONE 0.25 MG TABLET (FP) PO SCH ×2 (10:40→21:57)
[2017-03-10] MEDS: cloNIDine HCL 0.1 MG TABLET PO SCH ×2 (10:40→21:57)
--- NOTE | 2017-03-10 12:35 | PN ---
[facility] Progress Note Note: Laboratory Last Values WBC 4.9 K/mm3 (4.0-10.0) 03/09/17 07:00 RBC 4.13 M/mm3 (4.00-5.60) 03/09/17 07:00 Hgb 12.8 GM/dL (11.7-16.9) 03/09/17 07:00 Hct 39.5 % (35.4-49) 03/09/17 07:00 MCV 95.6 fl (80-96) 03/09/17 07:00 MCHC 32.4 g/dl (32.0-35.9) 03/09/17 07:00 RDW 14.2 % (11.9-15.9) D 03/09/17 07:00 Plt Count 163 K/MM3 (134-434) D 03/09/17 07:00 MPV 10.8 fl (7.5-11.1) 03/09/17 07:00 Neutrophils % 41.5 % (42.8-82.8) L 03/09/17 07:00 Lymphocytes % 38.5 % (8-40) 03/09/17 07:00 Monocytes % 12.3 % (3.8-10.2) H 03/09/17 07:00 Eosinophils % 7.0 % (0-4.5) H 03/09/17 07:00 Basophils % 0.7 % (0-2.0) 03/09/17 07:00 Sodium 140 mmol/L (136-145) 03/09/17 07:00 Potassium 4.3 mmol/L (3.5-5.1) D 03/09/17 07:00 Chloride 105 mmol/L (98-107) 03/09/17 07:00 Carbon Dioxide 27 mmol/L (21-32) 03/09/17 07:00 Anion Gap 8 (8-16) 03/09/17 07:00 BUN 25 mg/dL (7-18) H 03/09/17 07:00 Creatinine 1.1 mg/dL (0.7-1.3) 03/09/17 07:00 Random Glucose 84 mg/dL (74-106) D 03/09/17 07:00 Calcium 9.1 mg/dL (8.5-10.1) 03/09/17 07:00 HIV 1&2 Antibody Screen Negative 03/09/17 07:00 HIV P24 Antigen Negative 03/09/17 07:00 ENCOURAGE ORAL FLUID,REPEAT CMP ON Mon03/13/17 PROTONIX FOR GERD
[2017-03-10] MEDS: PANTOPRAZOLE 40 MG TABLET (FP) PO SCH (14:18)
[2017-03-10] MEDS: THIAMINE HCL 100 MG TABLET (FP) PO SCH (21:57)
[2017-03-10] MEDS: CYCLOBENZAPRINE HCL 10 MG TABLET (FP) PO PRN (21:58)
[2017-03-10] MEDS: diphenhydrAMINE HCL 50 MG CAPSULE PO PRN (21:58)
[2017-03-11] MEDS: hydrOXYzine PAMOATE 50 MG CAPSULE (FP) PO PRN (08:38)
[2017-03-11] MEDS: cloNIDine HCL 0.1 MG TABLET PO SCH ×2 (10:22→21:54)
[2017-03-11] MEDS: NICOTINE 14 MG/24 HOURS TOPICAL PATCH TD SCH (10:22)
[2017-03-11] MEDS: PRENATAL VITAMINS W/ FOLIC ACID TABLET (FP) PO SCH (10:22)
[2017-03-11] MEDS: PANTOPRAZOLE 40 MG TABLET (FP) PO SCH (10:22)
[2017-03-11] MEDS: SERTRALINE HCL 25 MG TABLET (FP) PO SCH (10:23)
[2017-03-11] MEDS: risperiDONE 0.25 MG TABLET (FP) PO SCH ×2 (10:23→21:54)
[2017-03-11] MEDS: THIAMINE HCL 100 MG TABLET (FP) PO SCH (21:53)
[2017-03-11] MEDS: diphenhydrAMINE HCL 50 MG CAPSULE PO PRN (21:54)
[2017-03-12] MEDS: cloNIDine HCL 0.1 MG TABLET PO SCH ×2 (10:36→21:48)
[2017-03-12] MEDS: PANTOPRAZOLE 40 MG TABLET (FP) PO SCH (10:36)
[2017-03-12] MEDS: PRENATAL VITAMINS W/ FOLIC ACID TABLET (FP) PO SCH (10:36)
[2017-03-12] MEDS: NICOTINE 14 MG/24 HOURS TOPICAL PATCH TD SCH (10:36)
[2017-03-12] MEDS: risperiDONE 0.25 MG TABLET (FP) PO SCH ×2 (10:36→21:47)
[2017-03-12] MEDS: SERTRALINE HCL 25 MG TABLET (FP) PO SCH (10:37)
[2017-03-12] MEDS: THIAMINE HCL 100 MG TABLET (FP) PO SCH (21:48)
[2017-03-12] MEDS: diphenhydrAMINE HCL 50 MG CAPSULE PO PRN (21:48)
[2017-03-13 10:01] LABS: ALBUMIN 4.1 g/dl (3.4-5.0); CALCIUM 9.3 mg/dL (8.5-10.1); COCKROFT - GAULT 59.72; CREATININE 1.3 mg/dL (0.7-1.3)
[2017-03-13 10:05] LABS: BILIRUBIN,TOTAL 0.5 mg/dL (0.2-1.0); TOT PROT 7.9 g/dl (6.4-8.2)
[2017-03-13] MEDS: cloNIDine HCL 0.1 MG TABLET PO SCH ×2 (10:44→22:01)
[2017-03-13] MEDS: NICOTINE 14 MG/24 HOURS TOPICAL PATCH TD SCH (10:44)
[2017-03-13] MEDS: PRENATAL VITAMINS W/ FOLIC ACID TABLET (FP) PO SCH (10:44)
[2017-03-13] MEDS: PANTOPRAZOLE 40 MG TABLET (FP) PO SCH (10:44)
[2017-03-13] MEDS: risperiDONE 0.25 MG TABLET (FP) PO SCH ×2 (10:45→22:02)
[2017-03-13] MEDS: SERTRALINE HCL 25 MG TABLET (FP) PO SCH (10:45)
[2017-03-13] MEDS: diphenhydrAMINE HCL 50 MG CAPSULE PO PRN (22:01)
[2017-03-13] MEDS: THIAMINE HCL 100 MG TABLET (FP) PO SCH (22:01)
[2017-03-14] MEDS: PANTOPRAZOLE 40 MG TABLET (FP) PO SCH (10:41)
[2017-03-14] MEDS: PRENATAL VITAMINS W/ FOLIC ACID TABLET (FP) PO SCH (10:41)
[2017-03-14] MEDS: cloNIDine HCL 0.1 MG TABLET PO SCH ×2 (10:42→21:40)
[2017-03-14] MEDS: NICOTINE 14 MG/24 HOURS TOPICAL PATCH TD SCH (10:42)
[2017-03-14] MEDS: risperiDONE 0.25 MG TABLET (FP) PO SCH ×2 (10:43→21:40)
[2017-03-14] MEDS: SERTRALINE HCL 25 MG TABLET (FP) PO SCH (10:43)
[2017-03-14] MEDS: THIAMINE HCL 100 MG TABLET (FP) PO SCH (21:40)
[2017-03-14] MEDS: diphenhydrAMINE HCL 50 MG CAPSULE PO PRN (21:41)
[2017-03-15] MEDS: PRENATAL VITAMINS W/ FOLIC ACID TABLET (FP) PO SCH (10:42)
[2017-03-15] MEDS: risperiDONE 0.25 MG TABLET (FP) PO SCH ×2 (10:43→21:49)
[2017-03-15] MEDS: PANTOPRAZOLE 40 MG TABLET (FP) PO SCH ×2 (10:43→14:15)
[2017-03-15] MEDS: cloNIDine HCL 0.1 MG TABLET PO SCH ×2 (10:43→21:51)
[2017-03-15] MEDS: SERTRALINE HCL 25 MG TABLET (FP) PO SCH (10:43)
[2017-03-15] MEDS: NICOTINE 14 MG/24 HOURS TOPICAL PATCH TD SCH (10:43)
[2017-03-15] MEDS: THIAMINE HCL 100 MG TABLET (FP) PO SCH (21:49)
[2017-03-15] MEDS: diphenhydrAMINE HCL 50 MG CAPSULE PO PRN (21:49)
[2017-03-16] MEDS: PRENATAL VITAMINS W/ FOLIC ACID TABLET (FP) PO SCH (10:28)
[2017-03-16] MEDS: PANTOPRAZOLE 40 MG TABLET (FP) PO SCH (10:28)
[2017-03-16] MEDS: cloNIDine HCL 0.1 MG TABLET PO SCH ×2 (10:29→21:56)
[2017-03-16] MEDS: NICOTINE 14 MG/24 HOURS TOPICAL PATCH TD SCH (10:29)
[2017-03-16] MEDS: risperiDONE 0.25 MG TABLET (FP) PO SCH ×2 (10:29→21:57)
[2017-03-16] MEDS: SERTRALINE HCL 25 MG TABLET (FP) PO SCH (10:29)
--- NOTE | 2017-03-16 19:14 | PN ---
Psychiatric Progress Note Vital Signs: Vital Signs Period Temp Pulse Resp BP Sys/Dickinson Pulse Ox Last 24 Hr 98.3 F 71-74 18-18 112-122/73-77 Date of Session: 03/16/17 Chief Complaint:: Discharge Note HPI: Patient addressing Alcohol amd Opoid Dependence comorbid with Nicotine Dependence, MDD and Posttraumatic Stress Disorder ROS: GERD Current Medications: Active Medications Generic Name Dose Route Start Last Admin Trade Name Freq PRN Reason Stop Dose Admin Al Hydroxide/Mg Hydroxide 30 ml 02/27/17 20:14 Mylanta Oral Suspension - PO Q6H PRN DYSPEPSIA Clonidine 0.1 mg 03/06/17 22:00 03/16/17 10:29 Catapres - PO Not Given BID MIRZA Cyclobenzaprine HCl 10 mg 03/06/17 13:38 03/10/17 21:58 Flexeril - PO 10 mg TID PRN Administration MUSCLE SPASMS Diphenhydramine HCl 50 mg 02/27/17 20:14 03/15/17 21:49 Benadryl - PO 50 mg HSMR1 PRN Administration FOR ITCHING Eucalyptus/Menthol/Phenol/Sorbitol 1 each 02/27/17 20:14 Cepastat Lozenge - MM Q4H PRN SORE THROAT Guaifenesin 10 ml 02/27/17 20:14 03/02/17 11:01 Robitussin Dm - PO 10 ml Q6H PRN Administration COUGH Hydroxyzine Pamoate 50 mg 02/27/17 20:14 03/11/17 08:38 Vistaril - PO 50 mg Q4H PRN Administration AGITATION Ibuprofen 400 mg 02/27/17 20:14 Motrin - PO Q6H PRN PAIN Loperamide HCl 4 mg 02/27/17 20:14 Imodium - PO Q6H PRN DIARRHEA Magnesium Hydroxide 30 ml 02/27/17 20:14 Milk Of Magnesia - PO DAILY PRN CONSTIPATION Nicotine 14 mg 02/27/17 20:14 03/16/17 10:29 Nicoderm Patch - TD Not Given DAILY MIRZA Nicotine Polacrilex 2 mg 02/27/17 20:14 Nicorette Gum - BUC Q2H PRN NICOTINE REPLACEMENT RX Pantoprazole Sodium 40 mg 03/10/17 12:30 03/16/17 10:28 Protonix - PO 40 mg DAILY MIRZA Administration Multivit/Folic Acid/Iron 1 tab 02/28/17 10:00 03/16/17 10:28 Vitamins (Sjr) - PO 1 tab DAILY MIRZA Administration Pseudoephedrine/Triprolidine 1 combo 02/27/17 20:14 Actifed - PO TID PRN NASAL CONGESTION Risperidone 0.25 mg 02/28/17 22:00 03/16/17 10:29 Risperdal - PO Not Given BID MIRZA Sertraline HCl 25 mg 03/01/17 10:00 03/16/17 10:29 Zoloft - PO Not Given DAILY MIRZA Thiamine HCl 100 mg 02/27/17 22:00 03/15/17 21:49 Vitamin B1 - PO 100 mg HS MIRZA Administration Trimethobenzamide HCl 200 mg 03/06/17 06:08 03/06/17 06:24 Tigan Injection - IM 200 mg Q8H PRN Administration NAUSEA Current Side Effect: No Lab tests ordered: Yes Lab tests reviewed: Yes Provider note:: Patient will complete this program on 03/17/17. He has met his treatment goals and will continue to address his issues in outpatient treatment at [facility] at [address] [place] [address]. Told underwriter that from his participation in this program, he has learned how to take care of his health and to surround himself with positive people. He responded well to Risperdal 0.25 mg po BID and Zoloft 25 mg po daily. Scripts for 30 days supply for these medications will be electronically transmitted to [facility] at [address] [place] [address]. He is stable for discharge on 03/17/17 Total face to face time:: 35
[2017-03-16] MEDS: diphenhydrAMINE HCL 50 MG CAPSULE PO PRN (21:56)
[2017-03-16] MEDS: THIAMINE HCL 100 MG TABLET (FP) PO SCH (21:56)
[2017-03-17 06:56] VITALS: BP 126/80; PULSE 68; TEMP 97.9
[2017-03-17] MEDS: NICOTINE 14 MG/24 HOURS TOPICAL PATCH TD SCH (10:36)
[2017-03-17] MEDS: cloNIDine HCL 0.1 MG TABLET PO SCH (10:36)
[2017-03-17] MEDS: PRENATAL VITAMINS W/ FOLIC ACID TABLET (FP) PO SCH (10:36)
[2017-03-17] MEDS: SERTRALINE HCL 25 MG TABLET (FP) PO SCH (10:37)
[2017-03-17] MEDS: risperiDONE 0.25 MG TABLET (FP) PO SCH (10:37)
[2017-03-17] MEDS: PANTOPRAZOLE 40 MG TABLET (FP) PO SCH (10:37)
== END 2017-03-17 13:30 | disposition home or self-care (01) | DRG 772 ==
LOC: YASAS 16:14 → Y5N 16:15
PROVIDERS: ADMIT Psychiatry & Neurology Psychiatry; ATTEND Psychiatry & Neurology Psychiatry
PROC: HZ42ZZZ Group Counseling for Substance Abuse Treatment, Cognitive-Behavioral (ICD-10-PCS; principal; 2017-03-17)
DX: F11.20 Opioid dependence, uncomplicated (principal); F10.20 Alcohol dependence, uncomplicated; F17.210 Nicotine dependence, cigarettes, uncomplicated; F43.10 Post-traumatic stress disorder, unspecified; F33.3 Major depressive disorder, recurrent, severe with psychotic symptoms; K21.9 Gastro-esophageal reflux disease without esophagitis; R63.4 Abnormal weight loss; Z68.20 Body mass index [BMI] 20.0-20.9, adult
CPT/HCPCS: 36415; 80048; 80053; 85025; 87389; 93005; 93010

== ENCOUNTER 2020-04-30 12:35 | Inpatient (IN) | payer OTHER ==
--- NOTE | 2020-04-30 12:56 | BHS.RME ---
Substance Use & Tx History - Substance Use History Alcohol Substance amount: 3-4 beers Frequency of use: Daily Substance route: Oral Date of Last Use: 04/29/20 Heroin Substance amount: 10 bags Frequency of use: Daily Substance route: Injection (ex: intravenous or skin popping) Date of Last Use: 04/30/20 Nicotine Substance amount: 3-4 cigarettes Frequency of use: Daily Substance route: Smoking Date of Last Use: 04/30/20 Physical/Psych/Mental Status - Behavior General Behavior: Increased activity (restlessness, agitation) Eye Contact: Normal - Cooperativeness Cooperativeness: Cooperative - Thinking Thought Processes: Tight, Logical, Goal Directed - Physical Health Problems Is patient presently having any pain?: No Does patient presently have any injuries (include location): No Does patient currently have a fever: No Is patient : No COWS - Scale Resting Pulse: 0= [place] 80 or Below Sweatin= Chills/Flushing Restless Observation: 1= Difficult to Sit Still Pupil Size: 0= Normal to Room Light Bone or Joint Aches: 0= None Runny Nose/ Eye Tearin= Runny Nose/Eyes GI Upset > 30mins: 1= Stomach Cramp Tremor Observation: 1= Tremor [place], Not Seen Yawning Observation: 0= None Anxiety or Irritability: 1=Feels Anxious/Irritable Goose Flesh Skin: 0=Smooth Skin COWS Score: 7
[2020-04-30 20:20] VITALS: BMI 20.7
--- NOTE | 2020-04-30 21:55 | HP ---
COWS - Scale Resting Pulse: 0= [place] 80 or Below Sweatin= Chills/Flushing Restless Observation: 1= Difficult to Sit Still Pupil Size: 1= Pupils >than Normal Bone or Joint Aches: 4=Acute Joint/Muscle Pain Runny Nose/ Eye Tearin= Runny Nose/Eyes GI Upset > 30mins: 2= Nausea/Diarrhea (diarrhea x 2) Tremor Observation: 2= Slight Tremor Visible Yawning Observation: 2= >3x During Session Anxiety or Irritability: 2=Irritable/Anxious Goose Flesh Skin: 3=Piloerection COWS Score: 20 CIWA Score - Admission Criteria OASAS Guidelines: Admission for Medically Managed Detox: Requires at least one of the followin. CIWA greater than 12 2. Seizures within the past 24 hours 3. Delirium tremens within the past 24 hours 4. Hallucinations within the past 24 hours 5. Acute intervention needed for co occurring medical disorder 6. Acute intervention needed for co occurring psychiatric disorder 7. Severe withdrawal that cannot be handled at a lower level of care (continued vomiting, continued diarrhea, abnormal vital signs) requiring intravenous medication and/or fluids 8. Admitting History and Physical - Smoking History Smoking history: Current every day smoker Have you smoked in the past 12 months: Yes Aproximately how many cigarettes per day: 5 - Alcohol/Substance Use Hx Alcohol Use: No Admission [facility] Chief Complaint: Seeking admission to detox from Heroin Allergies/Adverse Reactions: Allergies Allergy/AdvReac Type Severity Reaction Status Date / Time No Known Allergies Allergy Verified 02/22/17 17:33 History of Present Illness: 59 years old male with a long history of intravenous heroin dependence is seeking admission to detox. Patient's last admission was for the period 02/27/2017 - 03/17/2017. Earlier today, patient was sent to emergency room to evaluate right upper extremity cellulitis. As per ER provider, Romario MURPHY, patient was started on Dalvance IV to cover for staph strep and to avoid having to send patient out on oral antibiotics. Right upper arm redness and swelling noted. Patient is afebrile and reports minimal pain at this time. He has medical history of Hep. C (treated), meningitis, gastritis and psych. history of depression, anxiety and PTSD. He reports history of overdose in March 2019 and denies suicidal ideation at this time. Patient reports that he uses 10 bags of heroin daily and his last day of use was today. He uses alcohol occasionally and is not dependent on alcohol. He is on buprenorphine-naloxone 8- 2mg SL film dispensed on 04/05/2020. Patient reports that his last use of buprenorphine was a month ago. His drug screen is positive for Fen, MOP and cocaine Exam Limitations: Physical Impairment (right upper extremity cellulitis) - Ebola screening Have you traveled outside of the country in the last 21 days: No Have you had contact with anyone from an Ebola affected area: No Have you been sick,other than usual withdrawal symptoms: No Do you have a fever: No - Review of Systems Constitutional: Chills, Malaise, Night Sweats, Changes in sleep EENT: reports: Nose Congestion Respiratory: reports: No Symptoms reported Cardiac: reports: No Symptoms Reported GI: reports: Diarrhea, Nausea, Poor Appetite, Poor Fluid Intake, Abdominal cramping : reports: No Symptoms Reported Musculoskeletal: reports: Back Pain, Muscle Pain Integumentary: reports: Dryness, Flushing Neuro: reports: Tremors Endocrine: reports: No Symptoms Reported Hematology: reports: No Symptoms Reported Psychiatric: reports: Mood/Affect Appropiate, Orientated x3, Anxious Other Systems: Reviewed and Negative Patient History - Patient Medical History Hx Anemia: No Hx Asthma: No Hx Chronic Obstructive Pulmonary Disease (COPD): No Hx Cancer: No Hx Cardiac Disorders: No Hx Congestive Heart Failure: No Hx Hypertension: No Hx Hypercholesterolemia: No Hx Pacemaker: No HX Cerebrovascular Accident: No Hx Seizures: No Hx Dementia: No Hx Diabetes: No Hx Gastrointestinal Disorders: Yes (GERD) Hx Liver Disease: No Hx Genitourinary Disorders: No Hx Sexually Transmitted Disorders: Yes (Negative 2018) Hx Renal Disease (ESRD): No Hx Thyroid Disease: No Hx Human Immunodeficiency Virus (HIV): No Hx Hepatitis C: Yes (TREATED) Hx Depression: Yes Hx Suicide Attempt: No Hx Bipolar Disorder: No Hx Schizophrenia: No Other Medical History: Meningitis, PTSD, Anxiety - Patient Surgical History Past Surgical History: No Hx Neurologic Surgery: No Hx Cataract Extraction: No Hx Cardiac Surgery: No Hx Lung Surgery: No Hx Abdominal Surgery: No Hx Appendectomy: No Hx Cholecystectomy: No Hx Genitourinary Surgery: No Hx Orthopedic Surgery: No Anesthesia Reaction: No - PPD History Previous Implant?: Yes Documented Results: Positive w/o proof Implanted On Prior [facility] Admission?: Yes Date: 02/24/17 Results: 0MM PPD to be Administered?: Yes - Reproductive History Patient is a Female of Child Bearing Age (11 -55 yrs old): No (Male) - Smoking Cessation Smoking history: Current every day smoker Have you smoked in the past 12 months: Yes Aproximately how many cigarettes per day: 10 Hx Chewing Tobacco Use: No Initiated information on smoking cessation: Yes 'Breaking Loose' booklet given: 04/30/20 - Substance & Tx. History Hx Alcohol Use: No Hx Substance Use: Yes Substance Use Type: Cocaine, Heroin Hx Substance Use Treatment: Yes - Substances abused Heroin Substance route: Injection Frequency: Daily Amount used: 10 bags Age of first use: 20 Date of last use: 04/30/20 Admission Physical Exam [facility] - Vital Signs Vital Signs: Vital Signs - 24 hr 04/30/20 04/30/20 20:17 21:35 Temperature 97.2 F L 97.2 F L Pulse Rate 53 L 53 L Respiratory 18 18 Rate Blood Pressure 136/69 136/69 - Physical General Appearance: Yes: Moderate Distress, Tremorous, Anxious HEENTM: Yes: Within Normal Limits Respiratory: Yes: Lungs Clear, Normal Breath Sounds, No Respiratory Distress Neck: Yes: Within Normal Limits Breast: Yes: Breast Exam Deferred Cardiology: Yes: Bradycardia Abdominal: Yes: Normal Bowel Sounds, Soft Genitourinary: Yes: Within Normal Limits Back: Yes: Within Normal Limits Musculoskeletal: Yes: Back pain, Muscle Pain Extremities: Yes: Tremors Neurological: Yes: Within Normal Limits, Alert, Normal Mood/Affect Integumentary: Yes: Within Normal Limits Lymphatic: Yes: Within Normal Limits - Diagnostic (1) Cellulitis of arm, right Current Visit: Yes Status: Acute (2) Nicotine dependence Current Visit: Yes Status: Chronic Qualifiers: Nicotine product type: cigarettes Substance use status: uncomplicated Qualified Code(s): F17.210 - Nicotine dependence, cigarettes, uncomplicated (3) Opioid dependence with withdrawal Current Visit: Yes Status: Acute (4) Anxiety Current Visit: Yes Status: Chronic (5) GERD (gastroesophageal reflux disease) Current Visit: Yes Status: Chronic Qualifiers: (6) PTSD (post-traumatic stress disorder) Current Visit: Yes Status: Chronic (7) Depression (emotion) Current Visit: Yes Status: Chronic Qualifiers: Depression Type: dysthymia Qualified Code(s): F34.1 - Dysthymic disorder Cleared for Admission [facility] - Detox or Rehab [facility] Level of Care: Medically Managed Detox Regimen/Protocol: Methadone Claeared for Rehab Admission: No Breathalyzer - Breathalyzer Breathalyzer: 0 Urine Drug Screen - Test Device Lot number: [id number] Expiration date: 06/22/21 - Control Is test valid?: Yes - Results Drug screen NEGATIVE: No Urine drug screen results: MIHIR-Cocaine, FEN-Fentanyl, MOP-Opiates Inpatient Rehab Admission - Rehab Decision to Admit Inpatient rehab admission?: No
[2020-04-30] MEDS ORDERED: ACETAMINOPHEN 325 MG TABLET (FP) PO PRN ×2 (22:16)
[2020-04-30] MEDS ORDERED: IBUPROFEN 400 MG TABLET (FP) PO PRN (22:16)
[2020-04-30] MEDS ORDERED: MENTHOL/PHENOL 1 EACH UD MM PRN (22:16)
[2020-04-30] MEDS ORDERED: BISMUTH SUBSALICYLATE 524 MG/30 ML UD PO PRN (22:16)
[2020-04-30] MEDS ORDERED: MAGNESIUM HYDROX 2400MG/30ML ORAL SUSPENSION 30 ML CUP PO PRN (22:16)
[2020-04-30] MEDS ORDERED: METHADONE HCL 10 MG TABLET (FOR DETOX USE ONLY) PO ONE (22:16)
[2020-04-30] MEDS ORDERED: cloNIDine HCL 0.1 MG TABLET PO PRN (22:16)
[2020-04-30] MEDS ORDERED: MAG HYDROX/AL HYDROX/SIMETH 30 ML UNIT-DOSE CUP PO PRN (22:16)
[2020-04-30] MEDS ORDERED: ONDANSETRON *ODT* 4 MG TABLET SL ONE (22:16)
[2020-04-30] MEDS ORDERED: NICOTINE POLACRILEX 2 MG GUM BUC PRN (22:16)
[2020-04-30] MEDS ORDERED: MAGNESIUM CITRATE 300 ML BOTTLE PO PRN (22:16)
[2020-05-01] MEDS ORDERED: METHADONE HCL 10 MG TABLET (FOR DETOX USE ONLY) ONE (09:13)
[2020-05-01] MEDS ORDERED: METHADONE HCL 5 MG TABLET (FOR DETOX USE ONLY) ONE (09:14)
[2020-05-01] MEDS: PRENATAL VITAMINS W/ FOLIC ACID TABLET (FP) PO SCH (09:58)
[2020-05-01] MEDS: NICOTINE 14 MG/24 HOURS TOPICAL PATCH TD SCH (09:58)
[2020-05-01] MEDS ORDERED: METHADONE (DETOX) 20 MG, METHADONE (DETOX) 5 MG PO ONE (10:00)
[2020-05-01] MEDS: BACITRACIN 0.9 GM PACKET TP SCH ×2 (10:12→22:03)
--- NOTE | 2020-05-01 11:18 | PN ---
[facility]HS COWS - Scale Resting Pulse: 0= [place] 80 or Below Sweatin= Chills/Flushing Restless Observation: 0= Sits Still Pupil Size: 0= Normal to Room Light Bone or Joint Aches: 1= Mild Discomfort Runny Nose/ Eye Tearin= None GI Upset > 30mins: 1= Stomach Cramp Tremor Observation of Outstretched Hands: 0= None Yawning Observation: 0= None Anxiety or Irritability: 1=Feels Anxious/Irritable Goose Flesh Skin: 3=Piloerection COWS Score: 7 BHS Progress Note (SOAP) Subjective: Asking for Bacitracin for right arm injection site. Pt was seen at [facility] and tx with IV antibiotic, per note, no need for oral antibiotics after this IV tx. Pt asking for Ensure. Objective: 05/01/20 11:17 PE Gnl: WDWN, in no distress MS: awake, alert, follows complex commands Motor: moves limbs well Ext: Track arie right arm, no swelling, no erythema Gait: steady Active Medications Generic Name Dose Route Start Last Admin Trade Name Freq PRN Reason Stop Dose Admin Acetaminophen 650 mg 04/30/20 22:16 Tylenol - PO Q6H PRN PAIN LEVEL 4 - 6 Acetaminophen 650 mg 04/30/20 22:16 Tylenol - PO Q6H PRN FEVER Al Hydroxide/Mg Hydroxide 30 ml 04/30/20 22:16 Mylanta Oral Suspension - PO Q6H PRN DYSPEPSIA Bacitracin 0.9 gm 05/01/20 10:15 05/01/20 10:12 Bacitracin - TP 0.9 gm BID MIRZA Administration Bismuth Subsalicylate 524 mg 04/30/20 22:16 Pepto-Bismol - PO Q1H PRN DIARRHEA Clonidine 0.1 mg 04/30/20 22:16 Catapres - PO 05/02/20 23:59 Q4H PRN Withdrawal Symptoms Eucalyptus/Menthol/Phenol/Sorbitol 1 each 04/30/20 22:16 Cepastat Lozenge - MM 05/06/20 22:16 Q4H PRN SORE THROAT Hydroxyzine Pamoate 25 mg 04/30/20 22:16 Vistaril - PO 05/06/20 22:16 Q4HWA PRN ANXIETY Ibuprofen 400 mg 04/30/20 22:16 Motrin - PO Q6H PRN PAIN LEVEL 1 - 3 Magnesium Citrate 300 ml 04/30/20 22:16 Citroma - PO Q48H PRN CONSTIPATION Magnesium Hydroxide 30 ml 04/30/20 22:16 Milk Of Magnesia - PO PRN PRN CONSTIPATION Melatonin 5 mg 05/01/20 22:00 Melatonin PO HS [facility] Methadone HCl 5 mg 05/05/20 06:00 Dolophine - PO 05/05/20 06:01 ONCE@0600 ONE Methadone HCl 10 mg 05/04/20 10:00 Dolophine - PO 05/04/20 10:01 ONCE ONE Methadone HCl 20 mg 05/02/20 10:00 Dolophine - PO 05/02/20 10:01 ONCE ONE Methadone HCl 10 mg/ Methadone 15 mg 05/03/20 10:00 HCl 5 mg PO 05/03/20 10:01 ONCE ONE Methocarbamol 500 mg 04/30/20 22:16 Robaxin - PO 05/06/20 22:16 Q6H PRN MUSCLE SPASMS Nicotine 14 mg 05/01/20 10:00 05/01/20 09:58 Nicoderm Patch - TD Not Given DAILY MIRZA Nicotine Polacrilex 2 mg 04/30/20 22:16 Nicorette Gum - BUC Q2H PRN NICOTINE REPLACEMENT RX Multivit/Folic Acid/Iron 1 tab 05/01/20 10:00 05/01/20 09:58 Vitamins ([facility]) - PO 1 tab DAILY MIRZA Administration Thiamine HCl 100 mg 05/01/20 22:00 Vitamin B1 - PO HS [facility] Vital Signs Temperature 97.7 F 05/01/20 08:35 Pulse Rate 63 05/01/20 08:35 Respiratory Rate 18 05/01/20 08:35 Blood Pressure 131/74 05/01/20 08:35 O2 Sat by Pulse Oximetry (%) 100 05/01/20 05:42 Assessment: 05/01/20 11:18 1. Opioid use disorder 2. Tx 04/30/20 for right arm cellulitis, Dalvance IV given. ED notes reviewed, WBC 5.3, CMP nl except BUN 24 3. Nicotine dependence 05/01/20 11:19 05/01/20 11:22 05/01/20 11:22 Plan: 1. Methadone protocol 2. Bacitracin ordered 3. add Ensure 4. Nicoderm patch 5. add RPR to yesterdays lab
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
[2020-05-01] MEDS: THIAMINE HCL 100 MG TABLET (FP) PO SCH (22:02)
[2020-05-01] MEDS: MELATONIN 5 MG TABLETS PO SCH (22:03)
[2020-05-01] MEDS: hydrOXYzine PAMOATE 25 MG CAPSULE (FP) PO PRN (22:04)
[2020-05-02] MEDS: hydrOXYzine PAMOATE 25 MG CAPSULE (FP) PO PRN ×4 (02:35→18:51)
[2020-05-02] MEDS: METHOCARBAMOL 500 MG TABLET PO PRN ×3 (06:16→18:52)
[2020-05-02] MEDS ORDERED: METHADONE HCL 10 MG TABLET (FOR DETOX USE ONLY) PO ONE (10:00)
[2020-05-02] MEDS: PRENATAL VITAMINS W/ FOLIC ACID TABLET (FP) PO SCH (10:07)
[2020-05-02] MEDS: NICOTINE 14 MG/24 HOURS TOPICAL PATCH TD SCH (10:09)
[2020-05-02] MEDS: BACITRACIN 0.9 GM PACKET TP SCH ×2 (10:11→22:25)
--- NOTE | 2020-05-02 13:58 | PN ---
[facility] COWS - Scale Resting Pulse: 0= [place] 80 or Below Sweatin= No chills or Flushing Restless Observation: 1= Difficult to Sit Still Pupil Size: 0= Normal to Room Light Bone or Joint Aches: 2= Severe Diffuse Aches Runny Nose/ Eye Tearin= None GI Upset > 30mins: 0= None Tremor Observation of Outstretched Hands: 0= None Yawning Observation: 1= 1-2x During Session Anxiety or Irritability: 2=Irritable/Anxious Goose Flesh Skin: 0=Smooth Skin COWS Score: 6 BHS Progress Note (SOAP) Subjective: c/o anxiety, irritability, and muscle aches. Objective: 05/02/20 13:58 Vital Signs 05/02/20 05/02/20 05/02/20 06:29 08:47 12:52 Temperature 97.3 F L 96.8 F L 97.5 F L Pulse Rate 55 L 64 57 L Respiratory 18 18 18 Rate Blood Pressure 122/63 110/74 120/64 O2 Sat by Pulse 99 100 Oximetry (%) Assessment: 05/02/20 13:59 AOx 3, in no acute respiratory distress. Full ROM, ambulating in the unit. Withdrawal symptoms. Plan: continue detox.
[2020-05-02] MEDS: MELATONIN 5 MG TABLETS PO SCH (22:11)
[2020-05-02] MEDS: THIAMINE HCL 100 MG TABLET (FP) PO SCH (22:11)
[2020-05-03] MEDS: METHOCARBAMOL 500 MG TABLET PO PRN ×3 (06:50→21:53)
[2020-05-03] MEDS: hydrOXYzine PAMOATE 25 MG CAPSULE (FP) PO PRN ×3 (06:50→21:53)
[2020-05-03] MEDS ORDERED: METHADONE HCL 5 MG TABLET (FOR DETOX USE ONLY) ONE (09:08)
[2020-05-03] MEDS ORDERED: METHADONE HCL 10 MG TABLET (FOR DETOX USE ONLY) ONE (09:08)
[2020-05-03] MEDS ORDERED: METHADONE (DETOX) 10 MG, METHADONE (DETOX) 5 MG PO ONE (10:00)
[2020-05-03] MEDS: BACITRACIN 0.9 GM PACKET TP SCH ×2 (10:22→21:52)
[2020-05-03] MEDS: NICOTINE 14 MG/24 HOURS TOPICAL PATCH TD SCH (10:22)
[2020-05-03] MEDS: PRENATAL VITAMINS W/ FOLIC ACID TABLET (FP) PO SCH (10:22)
--- NOTE | 2020-05-03 11:41 | PN ---
B[facility] COWS - Scale Resting Pulse: 0= MD 80 or Below Sweatin= No chills or Flushing Restless Observation: 0= Sits Still Pupil Size: 1= Pupils >than Normal Bone or Joint Aches: 2= Severe Diffuse Aches Runny Nose/ Eye Tearin= None GI Upset > 30mins: 0= None Tremor Observation of Outstretched Hands: 1= Tremor [place], Not Seen Yawning Observation: 0= None Anxiety or Irritability: 1=Feels Anxious/Irritable Goose Flesh Skin: 0=Smooth Skin COWS Score: 5 BHS Progress Note (SOAP) Subjective: 59 years old male admitted on 04/30/20 for opiate withdrawal sx management treating with methadone detox regiment reports chronic back pain rejects lidocaine patch motrin 400mg po x 1 Objective: 05/03/20 11:46 Vital Signs - 24 hr 05/02/20 05/02/20 05/02/20 12:52 17:22 20:37 Temperature 97.5 F L 97.3 F L 97.5 F L Pulse Rate 57 L 56 L 58 L Respiratory 18 20 20 Rate Blood Pressure 120/64 112/68 100/64 O2 Sat by Pulse 100 100 Oximetry (%) 05/03/20 05/03/20 06:28 08:46 Temperature 97.1 F L 96.9 F L Pulse Rate 63 69 Respiratory 18 18 Rate Blood Pressure 97/61 106/73 O2 Sat by Pulse 98 Oximetry (%) Laboratory Tests 04/30/20 23:00 COVID-19 (JONES) Not detected 05/03/20 11:49 mr burkett was treated in ER on 04/30/20 for extremities cellulitis no DI no drainage needed return to [facility] treated with bacitracin ointment Assessment: 05/03/20 11:51 opiate withdrawal 05/03/20 11:51 extremities cellulitis Plan: methadone regiment bacitracin ointment
[2020-05-03] MEDS ORDERED: IBUPROFEN 400 MG TABLET (FP) PO ONE (11:45)
[2020-05-03] MEDS: THIAMINE HCL 100 MG TABLET (FP) PO SCH (21:52)
[2020-05-03] MEDS: MELATONIN 5 MG TABLETS PO SCH (21:52)
[2020-05-04] MEDS: METHOCARBAMOL 500 MG TABLET PO PRN ×3 (05:29→19:28)
[2020-05-04] MEDS: hydrOXYzine PAMOATE 25 MG CAPSULE (FP) PO PRN ×3 (05:29→19:27)
[2020-05-04] MEDS ORDERED: METHADONE HCL 10 MG TABLET (FOR DETOX USE ONLY) PO ONE (10:00)
[2020-05-04] MEDS: NICOTINE 14 MG/24 HOURS TOPICAL PATCH TD SCH (10:24)
[2020-05-04] MEDS: PRENATAL VITAMINS W/ FOLIC ACID TABLET (FP) PO SCH (10:24)
[2020-05-04] MEDS: BACITRACIN 0.9 GM PACKET TP SCH (10:24)
--- NOTE | 2020-05-04 12:30 | PN ---
BHS COWS - Scale Resting Pulse: 1= MA 81-100 Sweatin= No chills or Flushing Restless Observation: 0= Sits Still Pupil Size: 0= Normal to Room Light Bone or Joint Aches: 1= Mild Discomfort Runny Nose/ Eye Tearin= None GI Upset > 30mins: 0= None Tremor Observation of Outstretched Hands: 1= Tremor [place], Not Seen Yawning Observation: 0= None Anxiety or Irritability: 0= None Goose Flesh Skin: 0=Smooth Skin COWS Score: 3 BHS Progress Note (SOAP) Subjective: 59 years old male admitted on 04/30/20 for opiate withdrawal sx management treating with methadone detox regiment feeling better today less general body ache mild restlessness discussing medication assisted treatment program and picking up narcan from pharmacy upon discharge Objective: 05/04/20 12:35 Vital Signs - 24 hr 05/03/20 05/03/20 05/04/20 17:28 20:34 06:10 Temperature 97.8 F 97.3 F L 97.2 F L Pulse Rate 70 64 58 L Respiratory 18 18 18 Rate Blood Pressure 104/60 104/61 111/67 O2 Sat by Pulse 99 99 98 Oximetry (%) 05/04/20 08:46 Temperature 97.8 F Pulse Rate 86 Respiratory 18 Rate Blood Pressure 101/74 O2 MrSat by Pulse Oximetry (%) Laboratory Tests 04/30/20 23:00 COVID-19 (JONES) Not detected mr burkett was treated in ER for opiate overdose medically stabled transferred to [facility] for opiate detox Assessment: 05/04/20 12:40 opiate withdrawal Plan: methadone regiment
[2020-05-04] MEDS: MELATONIN 5 MG TABLETS PO SCH (22:02)
[2020-05-04] MEDS: THIAMINE HCL 100 MG TABLET (FP) PO SCH (22:02)
[2020-05-05] MEDS: METHOCARBAMOL 500 MG TABLET PO PRN (05:39)
[2020-05-05] MEDS: hydrOXYzine PAMOATE 25 MG CAPSULE (FP) PO PRN (05:39)
[2020-05-05] MEDS ORDERED: METHADONE HCL 5 MG TABLET (FOR DETOX USE ONLY) PO ONE (06:00)
[2020-05-05 08:53] VITALS: BP 124/67; PULSE 78; TEMP 96.3
--- NOTE | 2020-05-05 10:53 | DS ---
[facility] Detox Discharge Summary Admission Date: 04/30/20 Discharge Date: 05/05/20 - History Present History: Opioid Dependence Additional Comments: 59 years old male admitted on 04/30/20 for opiate withdrawal sx management treated with methadone detox regiment seen by psychiatrist no medical intervention mr burkett has completed the methadone regiment and is tolerated well alert oriented x 3 speech clearly coherently ambulating with steady gaits Vital Signs - 24 hr 05/04/20 05/04/20 05/04/20 14:14 16:32 20:43 Temperature 97.8 F 98.0 F Pulse Rate 77 63 Respiratory 18 18 Rate Blood Pressure 107/62 102/60 O2 Sat by Pulse 99 100 Oximetry (%) 05/05/20 05/05/20 05:53 08:48 Temperature 97.1 F L 96.3 F L Pulse Rate 60 78 Respiratory 18 18 Rate Blood Pressure 109/67 124/67 O2 Sat by Pulse 98 Oximetry (%) cardiac s1s2 regular rate rhythm respiratory clear lung sounds bilaterally on auscultation abdomen soft flat no rebound tenderness Pertinent Past History: time for discharge 34 minutes mr burkett was treated at ER for IV heroin sits of arms and legs around 1 pm on 04/30/20 no DI needed [facility] to [facility] around 8 pm for opiate withdrawal management IV sites bacitracine ointment warm compression and keep area clear and dry free from irritation - Physical Exam Results Vital Signs: Vital Signs Temperature 96.3 F L 05/05/20 08:48 Pulse Rate 78 05/05/20 08:48 Respiratory Rate 18 05/05/20 08:48 Blood Pressure 124/67 05/05/20 08:48 O2 Sat by Pulse Oximetry (%) 98 05/05/20 05:53 Pertinent Admission Physical Exam Findings: opiate withdrawal Laboratory Tests 04/30/20 23:00 COVID-19 (JONES) Not detected - Treatment Hospital Course: Detox Protocol Followed, Detoxed Safely, Responded well, Discharged Condition Good, Rehab Referral Accepted Patient has Accepted a Rehab Referral to: [facility] - Medication Discharge Medications: Ambulatory Orders Naloxone HCl [Narcan] 4 mg NS ASDIR PRN #1 spray 05/04/20 - Diagnosis (1) Cellulitis of arm, right Status: Chronic (2) Opioid dependence with withdrawal Status: Acute (3) Weight loss Status: Chronic (4) GERD (gastroesophageal reflux disease) Status: Chronic Qualifiers: Esophagitis presence: without esophagitis (5) Nicotine dependence Status: Acute Qualifiers: Nicotine product type: cigarettes Substance use status: in withdrawal Qualified Code(s): F17.213 - Nicotine dependence, cigarettes, with withdrawal - AMA Did Patient Leave Against Medical Advice: No COWS (PN) - Opiate Withdrawal Resting Pulse: 0= CT 80 or Below Sweatin= No chills or Flushing Restless Observation: 0= Sits Still Pupil Size: 0= Normal to Room Light Bone or Joint Aches: 0= None Runny Nose/ Eye Tearin= None GI Upset > 30mins: 0= None Tremor Observation of Outstretched Hands: 1= Tremor [place], Not Seen Yawning Observation: 0= None Anxiety or Irritability: 1=Feels Anxious/Irritable Goose Flesh Skin: 0=Smooth Skin COWS Score: 2
== END 2020-05-05 10:11 | disposition other institution (70) | DRG 773 ==
LOC: YASAS 12:35 → Y3N 21:12
PROVIDERS: ADMIT Allergy & Immunology; ATTEND Allergy & Immunology
PROC: HZ2ZZZZ Detoxification Services for Substance Abuse Treatment (ICD-10-PCS; principal; 2020-04-30)
DX: F11.23 Opioid dependence with withdrawal (principal); F14.10 Cocaine abuse, uncomplicated; F17.210 Nicotine dependence, cigarettes, uncomplicated; F19.24 Other psychoactive substance dependence with psychoactive substance-induced mood disorder; F43.10 Post-traumatic stress disorder, unspecified; F34.1 Dysthymic disorder; F41.8 Other specified anxiety disorders; L03.113 Cellulitis of right upper limb; Z79.2 Long term (current) use of antibiotics; K21.9 Gastro-esophageal reflux disease without esophagitis; B18.2 Chronic viral hepatitis C; M54.89 Other dorsalgia; G89.29 Other chronic pain; Z62.810 Personal history of physical and sexual abuse in childhood; Z86.61 Personal history of infections of the central nervous system; Z91.5 Personal history of self-harm; Z59.0 Homelessness
CPT/HCPCS: Q0162; U0003

== ENCOUNTER 2020-04-30 13:45 | Emergency (ER) | payer OTHER ==
--- NOTE | 2020-04-30 13:53 | PDOC ---
Rapid Medical Evaluation Time Seen by Provider: 04/30/20 13:48 Medical Evaluation: Allergies Allergy/AdvReac Type Severity Reaction Status Date / Time No Known Allergies Allergy Verified 02/22/17 17:33 04/30/20 13:48 I performed a brief in-person evaluation of this patient. 59 y/o male who presents to the ED with R upper arm redness and swelling that started yesterday. He states he relapsed on IV heroin one week ago after having 18 months to 2 years clean. He states he tried to inject heroin in his right upper arm and had trouble with the injection. He denies any fevers. Pertinent physical exam findings: R upper arm erythema and warmth to touch, no discrete abscess appreciated I have ordered the following: labs, RUE US soft tissue POCUS Patient to proceed to ED for further evaluation. Discharge Disposition - Diagnosis Cellulitis of arm, right - Referrals - Patient Instructions - Post Discharge Activity
[2020-04-30 13:56] VITALS: BP 129/72; PULSE 65; TEMP 98.3
[2020-04-30] MEDS ORDERED: DALBAVANCIN HCL 1,500 MG in DEXTROSE 5%-WATER - 500 ML IVPB ONE (14:18)
--- NOTE | 2020-04-30 14:24 | PDOC ---
History of Present Illness - General History Source: Patient Exam Limitations: No Limitations - History of Present Illness Initial Comments: 04/30/20 14:20 59-year-old male past medical history EtOH and heroin abuse last use 7 AM today IV presenting to the ED from [facility] for right upper extremity cellulitis. Patient admitted himself to detox today and was noted by the [facility] physician to have an area of erythema and warmth to the right upper extremity proximal to the AC fossa. Patient states that he tried to inject heroin about 4 days ago in to a vein proximal to his AC and thinks that he missed and noticed increased pain and swelling to the area. Pt otherwise denies: fevers, chills, syncope, lightheadedness, dizziness, headaches, neck pain, chest pain, shortness of breath, palpitations, back pain, abdominal pain, nausea, vomiting, diarrhea, constipation. <Osorio Constantino - Last Filed: 04/30/20 16:08> <Cheyenne Allen - Last Filed: 05/01/20 17:33> - General Chief Complaint: Wound Stated Complaint: DETOX Time Seen by Provider: 04/30/20 13:48 Past History - Medical History Anemia: No Asthma: No Cancer: No Cardiac Disorders: No CVA: No COPD: No CHF: No Dementia: No Diabetes: No GI Disorders: No Disorders: No HTN: No Hypercholesterolemia: No Kidney Stones: No Liver Disease: No Seizures: No Thyroid Disease: No - Surgical History Abdominal Surgery: No Appendectomy: No Cardiac Surgery: No Cholecystectomy: No Lung Surgery: No Neurologic Surgery: No Orthopedic Surgery: No - Reproductive History Testicular Surgery: No - Psycho-Social/Smoking History Smoking History: Current every day smoker Have you smoked in the past 12 months: Yes Number of Cigarettes Smoked Daily: 3 Cigars Per Day: 0 Information on smoking cessation initiated: No 'Breaking Loose' booklet given: 02/22/17 - Substance Abuse Hx (Audit-C & DAST Scrn) How often the patient has a drink containing alcohol: 4 0r more times/wk Number of drinks the patient has on a typical day: 3 or 4 How often the patient has six or more drinks on one occasion: Daily or almost daily Score: In Men: 4 or > Positive; In Women: 3 or > Positive: 9 Screen Result (Pos requires Nsg. Audit-10AR): Positive In the last yr the pt used illegal drug/Rx for NonMed reason: Yes Score: Yes response is considered Positive: 1 Screen Result (Positive result requires Nsg. DAST-10): Positive <Osorio Constantino - Last Filed: 04/30/20 16:08> <Cheyenne Allen - Last Filed: 05/01/20 17:33> - Medical History Allergies/Adverse Reactions: Allergies Allergy/AdvReac Type Severity Reaction Status Date / Time No Known Allergies Allergy Verified 02/22/17 17:33 Review of Systems - Review of Systems Constitutional: No: Chills, Fever, Weakness Respiratory: No: Shortness of Breath Cardiac (ROS): No: Chest Pain ABD/GI: No: Abdominal Distended : No: Dysuria Musculoskeletal: No: Back Pain, Joint Pain, Joint Swelling, Muscle Pain, Muscle Weakness Integumentary: Yes: Change in Color, Erythema Neurological: No: Headache, Numbness, Tingling <Osorio Constantino - Last Filed: 04/30/20 16:08> *Physical Exam - Vital Signs Last Vital Signs Temp Pulse Resp BP Pulse Ox 98.3 F 65 17 129/72 100 04/30/20 13:52 04/30/20 13:52 04/30/20 13:52 04/30/20 13:52 04/30/20 13:52 - Physical Exam 04/30/20 14:23 Gen: AAOx 3, no acute distress, comfortable, no signs of respiratory distress HENT: atraumatic, normocephalic with no laceration or contusion. Nasal mucosa without erythema. Oropharynx without erythema or exudates. Mucous membranes moist. EYES: PERRL, EOM intact, conjunctiva pink NECK: supple; trachea midline; no JVD, no lymphadenopathy, or thyromegaly CV: RRR no murmurs, gallops, or rubs. CHEST: CTA b/l no wheezing, rales or rhonchi ABD: +BS/ND. no TTP; soft, no rebound, no guarding EXTREMITY: no cyanosis or erythema. 2+ dorsalis pedis, posterior tibial, and radial pulse. No pedal edema; no calf swelling or tenderness RUE: 5cm diameter area of erythma and increased warmth on right bicep no lymphangitis, no underlying induration or flucuance. SKIN: no rash, warm and dry, no diaphoresis HEME: no purpura or ecchymosis NEURO: normal speech, CN II-XII intact, sensation intact, normal gait, no cerebellar deficits MS: 5/5 strength in all extremities, FROM intact in all extremities. <Osorio Constantino - Last Filed: 04/30/20 16:08> - Vital Signs Last Vital Signs Temp Pulse Resp BP Pulse Ox 98.3 F 65 17 129/72 100 04/30/20 13:52 04/30/20 13:52 04/30/20 13:52 04/30/20 13:52 04/30/20 13:52 <Cheyenne Allen - Last Filed: 05/01/20 17:33> ED Treatment Course - LABORATORY CBC & Chemistry Diagram: 04/30/20 14:40 04/30/20 14:40 <Osorio Constantino - Last Filed: 04/30/20 16:08> - LABORATORY CBC & Chemistry Diagram: 04/30/20 14:40 04/30/20 14:40 - ADDITIONAL ORDERS Additional order review: 04/30/20 14:40 RBC 3.90 L MCV 92.0 MCHC 32.0 RDW 13.3 MPV 10.9 Neutrophils % 63.3 D Lymphocytes % 21.9 D Monocytes % 11.9 H Eosinophils % 2.4 Basophils % 0.5 - Medications Given in the ED: ED Medications Discontinued Medications Generic Name Dose Route Start Last Admin Trade Name Freq PRN Reason Stop Dose Admin Dalbavancin 1,500 mg/ Dextrose 500 mls @ 1,000 mls/hr 04/30/20 14:18 04/30/20 15:37 IVPB 04/30/20 14:47 1,000 mls/hr ONCE ONE Administration <Cheyenne Allen - Last Filed: 05/01/20 17:33> Medical Decision Making - Medical Decision Making 04/30/20 14:23 51-year-old male presenting from [facility] after IVDU with right upper extremity cellulitis. Vital signs stable afebrile Will obtain CBC CMP lactate We will start patient on Dalvance IV to cover for staph strep and to avoid having to send patient out on p.o. antibiotics We will reassess based on results Labs show no elevation of WBC mildly anemic but asymptomatic, rest of Labs non contributory POCUS: shows no abscess Pt receiving IV ABX and is clear to return to [facility] after completed dose. Pt is safe and stable for discharge with close follow up. Supportive care instructions explained and given to pt. Reasons to return emergently to ER explained and given. Importance of follow up with PMD and other specialists as indicated stressed to pt. Pt verbalized understanding of instructions. Pt to follow up with PMD in 2 days. 04/30/20 16:08 <Osorio Constantino - Last Filed: 04/30/20 16:08> - Medical Decision Making The patient was seen and evaluated in conjunction with midlevel provider under my direct supervision, ancillary studies were reviewed. I agree with the plan as outlined withNINA Constantino. HPI, workup/dispo as outlined. VS reviewed, wnl. [id number] ultrasound negative for fluid collection, abscess or deeper soft tissue cellulitis, no cobblestoning. He does have area of erythema superficia lly so we will treat as cellulitis. Patient is IV drug user and from [facility]. Will give IV Dalvance. No incision and drainage is indicated at this time. Basic laboratory results were obtained, normal creatinine function and laboratory results anticipate discharge back to [facility], pcp followup, return precautions 05/01/20 17:33 <Cheyenne Allen - Last Filed: 05/01/20 17:33> Discharge - Discharge Information Problems reviewed: Yes - Admission No <Osorio Constantino - Last Filed: 04/30/20 16:08> <Cheyenne Allen - Last Filed: 05/01/20 17:33> - Discharge Information Clinical Impression/Diagnosis: Cellulitis of arm, right Condition: Stable Disposition: HOME - Patient Discharge Instructions Patient Printed Discharge Instructions: DI for Cellulitis -- Adult
[2020-04-30 15:17] LABS: BASO % 0.5 % (0-2.0); EOS % 2.4 % (0-4.5); HEMATOCRIT 35.9 % (35.4-49); HEMOGLOBIN 11.5 GM/dL (11.7-16.9); LYMPH % 21.9 % (8-40); MCH 29.5 pg (25.7-33.7); MEAN PLT VOLUME 10.9 fl (7.5-11.1); MONO % 11.9 % (3.8-10.2); NEUT % 63.3 % (42.8-82.8); PLATELET COUNT 130 K/MM3 (134-434); RDW 13.3 % (11.9-15.9); WHITE BLOOD COUNT 5.3 K/mm3 (4.0-10.0)
[2020-04-30 15:45] LABS: ALBUMIN 3.7 g/dl (3.4-5.0); BILIRUBIN,TOTAL 0.3 mg/dL (0.2-1); BLOOD UREA NITROGEN 24.9 mg/dL (7-18); CALCIUM 8.9 mg/dL (8.5-10.1); CREATININE 1.2 mg/dL (0.55-1.3); POTASSIUM 4.5 mmol/L (3.5-5.1); TOT PROT 7.2 g/dl (6.4-8.2)
--- NOTE | 2020-04-30 20:12 | HP ---
COWS - Scale Resting Pulse: 0= [place] 80 or Below Sweatin= Chills/Flushing Restless Observation: 1= Difficult to Sit Still Pupil Size: 1= Pupils >than Normal Bone or Joint Aches: 4=Acute Joint/Muscle Pain Runny Nose/ Eye Tearin= Runny Nose/Eyes GI Upset > 30mins: 2= Nausea/Diarrhea (diarrhea x 2) Tremor Observation: 2= Slight Tremor Visible Yawning Observation: 2= >3x During Session Anxiety or Irritability: 2=Irritable/Anxious Goose Flesh Skin: 3=Piloerection COWS Score: 20 CIWA Score - Admission Criteria OASAS Guidelines: Admission for Medically Managed Detox: Requires at least one of the followin. CIWA greater than 12 2. Seizures within the past 24 hours 3. Delirium tremens within the past 24 hours 4. Hallucinations within the past 24 hours 5. Acute intervention needed for co occurring medical disorder 6. Acute intervention needed for co occurring psychiatric disorder 7. Severe withdrawal that cannot be handled at a lower level of care (continued vomiting, continued diarrhea, abnormal vital signs) requiring intravenous medication and/or fluids 8. Admitting History and Physical - Smoking History Smoking history: Current every day smoker Have you smoked in the past 12 months: Yes Aproximately how many cigarettes per day: 3 - Alcohol/Substance Use Hx Alcohol Use: Yes (1 22 oz beer a day, 1 pint of gin) Admission [facility] Chief Complaint: Seeking admission to detox from Heroin Allergies/Adverse Reactions: Allergies Allergy/AdvReac Type Severity Reaction Status Date / Time No Known Allergies Allergy Verified 02/22/17 17:33 History of Present Illness: 59 years old male with a long history of intravenous heroin dependence is seeking admission to detox. Patient's last admission was for the period 02/27/2017 - 03/17/2017. He was sent to emergency room to evaluate right upper extremity cellulitis. As per ER provider, Romario MURPHY, patient was started on Dalvance IV to cover for staph strep and to avoid having to send patient out on oral antibiotics. Right upper arm redness and swelling noted. Patient is afebrile and reports minimal pain at this time. He has medical history of Hep. C (treated), meningitis, gastritis and psych. history of depression, anxiety and PTSD. He reports history of overdose in March 2019 and de nies suicidal ideation at this time. Patient reports that he uses 10 bags of heroin daily and his last day of use was today. He uses alcohol occasionally and is not dependent on alcohol. He is on buprenorphine-naloxone 8-2mg SL film dispensed on 04/05/2020. Patient reports that his last use of buprenorphine was a month ago. His drug screen is positive for Fen, MOP and cocaine. Exam Limitations: Clinical Condition - Ebola screening Have you traveled outside of the country in the last 21 days: No Have you had contact with anyone from an Ebola affected area: No Have you been sick,other than usual withdrawal symptoms: No Do you have a fever: No - Review of Systems Constitutional: Chills, Malaise, Night Sweats, Changes in sleep EENT: reports: No Symptoms Reported Respiratory: reports: No Symptoms reported Cardiac: reports: No Symptoms Reported GI: reports: Nausea, Poor Appetite, Poor Fluid Intake, Vomiting, Abdominal cramping : reports: No Symptoms Reported Musculoskeletal: reports: Back Pain, Muscle Pain Integumentary: reports: Dryness, Flushing Neuro: reports: Tremors Endocrine: reports: No Symptoms Reported Hematology: reports: No Symptoms Reported Psychiatric: reports: Mood/Affect Appropiate, Orientated x3, Anxious Other Systems: Reviewed and Negative Patient History - Patient Medical History Hx Anemia: No Hx Asthma: No Hx Chronic Obstructive Pulmonary Disease (COPD): No Hx Cancer: No Hx Cardiac Disorders: No Hx Congestive Heart Failure: No Hx Hypertension: No Hx Hypercholesterolemia: No Hx Pacemaker: No HX Cerebrovascular Accident: No Hx Seizures: No Hx Dementia: No Hx Diabetes: No Hx Gastrointestinal Disorders: Yes (Gastritis) Hx Liver Disease: No Hx Genitourinary Disorders: No Hx Sexually Transmitted Disorders: No Hx Renal Disease (ESRD): No Hx Thyroid Disease: No Hx Human Immunodeficiency Virus (HIV): No Hx Hepatitis C: Yes (TREATED) Hx Depression: Yes Hx Suicide Attempt: No Hx Bipolar Disorder: No Hx Schizophrenia: No Other Medical History: Meningitis, PTSD - Patient Surgical History Past Surgical History: No Hx Neurologic Surgery: No Hx Cataract Extraction: No Hx Cardiac Surgery: No Hx Lung Surgery: No Hx Abdominal Surgery: No Hx Appendectomy: No Hx Cholecystectomy: No Hx Genitourinary Surgery: No Hx Section: No Hx Orthopedic Surgery: No Anesthesia Reaction: No - PPD History Previous Implant?: Yes Documented Results: Negative w/proof Implanted On Prior [facility] Admission?: Yes Date: 02/24/17 Results: 0MM PPD to be Administered?: Yes - Reproductive History Patient is a Female of Child Bearing Age (11 -55 yrs old): No (male) - Smoking Cessation Smoking history: Current every day smoker Have you smoked in the past 12 months: Yes Aproximately how many cigarettes per day: 5 Hx Chewing Tobacco Use: No Initiated information on smoking cessation: Yes 'Breaking Loose' booklet given: 04/30/20 - Substance & Tx. History Hx Alcohol Use: No Hx Substance Use: Yes (Heroin) Substance Use Type: Cocaine, Heroin Hx Substance Use Treatment: Yes ([facility]) - Substances abused Heroin Substance route: Injection Frequency: Daily Amount used: 10 bags Age of first use: 20 Date of last use: 04/30/20 Admission Physical Exam [facility] - Vital Signs Vital Signs: Vital Signs - 24 hr 04/30/20 13:52 Temperature 98.3 F Pulse Rate 65 Respiratory 17 Rate Blood Pressure 129/72 O2 Sat by Pulse 100 Oximetry (%) - Physical General Appearance: Yes: Cachetic, Tremorous, Sweating, Anxious HEENTM: Yes: Within Normal Limits Respiratory: Yes: Lungs Clear, Normal Breath Sounds, No Respiratory Distress Neck: Yes: Within Normal Limits Breast: Yes: Breast Exam Deferred Cardiology: Yes: Bradycardia Abdominal: Yes: Normal Bowel Sounds Genitourinary: Yes: Within Normal Limits Back: Yes: Normal Inspection Musculoskeletal: Yes: Within Normal Limits Extremities: Yes: Tremors Neurological: Yes: Within Normal Limits Integumentary: Yes: Warm Lymphatic: Yes: Within Normal Limits - Diagnostic (1) Anxiety Status: Chronic (2) Cellulitis of arm, right Status: Acute (3) Nicotine dependence Status: Chronic Qualifiers: Nicotine product type: cigarettes Substance use status: uncomplicated Qualified Code(s): F17.210 - Nicotine dependence, cigarettes, uncomplicated (4) Opioid dependence with withdrawal Status: Acute (5) PTSD (post-traumatic stress disorder) Status: Chronic (6) GERD (gastroesophageal reflux disease) Status: Chronic Qualifiers: Cleared for Admission [facility] - Detox or Rehab [facility] Level of Care: Medically Managed Detox Regimen/Protocol: Methadone Claeared for Rehab Admission: No Inpatient Rehab Admission - Rehab Decision to Admit Inpatient rehab admission?: No
[2020-04-30] MEDS ORDERED: NICOTINE POLACRILEX 2 MG GUM BUC PRN (20:31)
[2020-04-30] MEDS ORDERED: ACETAMINOPHEN 325 MG TABLET (FP) PO PRN ×2 (20:31)
[2020-04-30] MEDS ORDERED: hydrOXYzine PAMOATE 25 MG CAPSULE (FP) PO PRN (20:31)
[2020-04-30] MEDS ORDERED: MAGNESIUM CITRATE 300 ML BOTTLE PO PRN (20:31)
[2020-04-30] MEDS ORDERED: BISMUTH SUBSALICYLATE 524 MG/30 ML UD PO PRN (20:31)
[2020-04-30] MEDS ORDERED: IBUPROFEN 400 MG TABLET (FP) PO PRN (20:31)
[2020-04-30] MEDS ORDERED: cloNIDine HCL 0.1 MG TABLET PO PRN (20:31)
[2020-04-30] MEDS ORDERED: ONDANSETRON *ODT* 4 MG TABLET SL ONE (20:31)
[2020-04-30] MEDS ORDERED: MAG HYDROX/AL HYDROX/SIMETH 30 ML UNIT-DOSE CUP PO PRN (20:31)
[2020-04-30] MEDS ORDERED: METHOCARBAMOL 500 MG TABLET PO PRN (20:31)
[2020-04-30] MEDS ORDERED: MENTHOL/PHENOL 1 EACH UD MM PRN (20:31)
[2020-04-30] MEDS ORDERED: MAGNESIUM HYDROX 2400MG/30ML ORAL SUSPENSION 30 ML CUP PO PRN (20:31)
[2020-04-30] MEDS ORDERED: METHADONE HCL 10 MG TABLET (FOR DETOX USE ONLY) PO ONE (20:31)
[2020-04-30] MEDS ORDERED: METHADONE HCL 10 MG TABLET PO ONE (20:45)
[2020-04-30] MEDS ORDERED: THIAMINE HCL 100 MG TABLET (FP) PO SCH (22:00)
[2020-04-30] MEDS ORDERED: MELATONIN 5 MG TABLETS PO SCH (22:00)
[2020-05-01] MEDS ORDERED: METHADONE 20 MG, METHADONE 5 MG PO ONE (10:00)
[2020-05-01] MEDS ORDERED: PRENATAL VITAMINS W/ FOLIC ACID TABLET (FP) PO SCH (10:00)
[2020-05-01] MEDS ORDERED: NICOTINE 14 MG/24 HOURS TOPICAL PATCH TD SCH (10:00)
--- NOTE | 2020-05-01 13:39 | EKG ---
Test Reason : Blood Pressure : / mmHG Vent. Rate : 051 BPM Atrial Rate : 051 BPM P-R Int : 160 ms QRS Dur : 080 ms QT Int : 418 ms P-R-T Axes : 080 029 048 degrees QTc Int : 385 ms POOR DATA QUALITY, INTERPRETATION MAY BE ADVERSELY AFFECTED SINUS BRADYCARDIA OTHERWISE NORMAL ECG WHEN COMPARED WITH ECG OF 01-MAR-2017 06:06, NO SIGNIFICANT CHANGE WAS FOUND Confirmed by PANCHO MARTINEZ MD ([id number]) on 05/01/2020 1:38:49 PM Referred By: Confirmed By:PANCHO MARTINEZ MD
[2020-05-02] MEDS ORDERED: METHADONE HCL 10 MG TABLET PO ONE (10:00)
[2020-05-03] MEDS ORDERED: METHADONE 10 MG, METHADONE 5 MG PO ONE (10:00)
[2020-05-04] MEDS ORDERED: METHADONE HCL 10 MG TABLET PO ONE (10:00)
[2020-05-05] MEDS ORDERED: METHADONE HCL 5 MG TABLET PO ONE (06:00)
== END 2020-04-30 16:56 | disposition home or self-care (01) ==
LOC: JER 13:45
PROC: 3E033GC Introduction of Other Therapeutic Substance into Peripheral Vein, Percutaneous Approach (ICD-10-PCS; principal; 2020-04-30)
DX: L03.113 Cellulitis of right upper limb (principal)
CPT/HCPCS: 36415; 76882-TC-RT; 80053; 83605; 85025; 86780; 93005; 93010; 99285-25; J0875